=== PATIENT | male | born 1955 | race Caucasian/White ===

== ENCOUNTER → 2019-01-15 | Outpatient (CLI) | payer BC ==
[~2019-01-15] MED LIST: JANUMET 50-1,01 EACH; JANUMET XR 50-1 EAC1 PO; LIDOCAINE/PRILOCAINE 2.5-2.5% KIT ONE; LOSARTAN POTASS50 MG PO; MINERAL OIL/PETROLAT/GLYCERI 6OZ BTL ONE; MUPIROCIN22 GM TOP; SIMVASTATIN20 MG PO; ZYVOX600 MG PO
== END ==
LOC: WCC 14:12
PROVIDERS: ATTEND Internal Medicine Infectious Disease
DX: E11.8 Type 2 diabetes mellitus with unspecified complications (principal); I87.332 Chronic venous hypertension (idiopathic) with ulcer and inflammation of left lower extremity; L97.329 Non-pressure chronic ulcer of left ankle with unspecified severity; R60.9 Edema, unspecified; I87.2 Venous insufficiency (chronic) (peripheral); E78.41 Elevated Lipoprotein(a)

== ENCOUNTER 2019-01-17 18:39 | Inpatient (IN) | payer BC ==
[~2019-01-17] VITALS: Ht 177.8 cm; Wt 122.2 kg
[2019-01-17] MEDS ORDERED: DEXTROSE 50% SYRINGE 50 ML IV PRN (20:45)
[2019-01-17] MEDS ORDERED: DIPHENHYDRAMINE HCL INJ 50 MG/ML VIAL IV ONE (20:45)
[2019-01-17] MEDS ORDERED: ONDANSETRON HCL INJ 2MG/ML 2ML 2 MG/ML VIAL IV PRN (20:45)
[2019-01-17] MEDS ORDERED: ACETAMINOPHEN 325 MG TAB PO PRN (20:45)
[2019-01-17] MEDS ORDERED: MORPHINE SULFATE 2 MG/ML SYR 1ML IV PRN (20:45)
[2019-01-17] MEDS: FAMOTIDINE 20 MG/2 ML VIAL IV SCH (20:57)
[2019-01-17] MEDS: PIPER-TAZ 3.375 GM 50 ML IV SCH (20:57)
[2019-01-17] MEDS ORDERED: ZYVOX600 MG PO (21:00)
[2019-01-17] MEDS ORDERED: MUPIROCIN22 GM TOP (21:01)
[2019-01-17] MEDS ORDERED: JANUMET XR 50-1 EAC1 PO (21:03)
[2019-01-17] MEDS ORDERED: JANUMET 50-1,01 EACH (21:03)
[2019-01-17] MEDS ORDERED: SIMVASTATIN20 MG PO (21:03)
[2019-01-17] MEDS ORDERED: LOSARTAN POTASS50 MG PO (21:03)
[2019-01-17 21:15] LABS: BASOPHILS # (AUTO) 0.1 (0.0-0.1); BASOPHILS % 0.6 % (0.0-1.0); EOSINOPHILS # (AUTO) 0.5 (0.0-0.4); EOSINOPHILS % 5.3 % (0.0-6.0); HEMATOCRIT 46.6 % (38.2-49.6); HEMOGLOBIN 15.4 g/dL (14.0-18.0); LYMPHOCYTES # (AUTO) 1.2 (1.0-3.2); LYMPHOCYTES % 12.7 % (18.0-39.1); MEAN CORPUSCULAR HEMOGLOBIN 29.6 pg (28-32); MEAN CORPUSCULAR VOLUME 89.4 fL (81-99); MONOCYTES % 10.5 % (4.4-11.3); NEUTROPHILS # (AUTO) 6.7 (2.1-6.9); NEUTROPHILS % 70.5 % (38.7-80.0); PLATELET COUNT 236 x10e3/uL (140-360); RED BLOOD COUNT 5.21 x10e6/uL (4.3-5.7); RED CELL DISTRIBUTION WIDTH 12.7 % (11.7-14.4)
[2019-01-17] MEDS: VANCOMYCIN 1GM/NS 250 ML 250 ML IV SCH (21:19)
[2019-01-17] MEDS: SODIUM CHLORIDE 0.9% 1000ML 1,000 ML IV SCH (21:26)
[2019-01-17] MEDS: INSULIN LISPRO 100 UNIT/1 ML 3ML VIAL SQ SCH (21:34)
[2019-01-17 21:35] LABS: ALBUMIN 3.9 g/dL (3.5-5.0); ALBUMIN/GLOBULIN RATIO 1.3 (0.8-2.0); ANION GAP 13.1 mmol/L (8-16); CALCIUM 10.1 mg/dL (8.4-10.2); CREATININE, SERUM 1.24 mg/dL (0.72-1.25); MAGNESIUM 1.9 MG/DL (1.3-2.1); POTASSIUM 4.1 mmol/L (3.5-5.1)
--- NOTE | 2019-01-17 22:02 | Diagnostic Imaging Report ---
Examination: Single AP view of the chest. COMPARISON: Chest two views 01/23/2011 INDICATION: Lower extremity cellulitis IMPRESSION: 1. Lines and Tubes: None 2. Lungs are grossly clear. No consolidation or effusion. 3. Cardiomediastinal silhouette is normal. Pulmonary vasculature is normal. 4. No acute bony abnormalities. Signed by: Dr. Freddie Rae M.D. on 01/17/2019 9:58 PM
[2019-01-17 23:25] LABS: CLARITY,URINE CLEAR (CLEAR); COLOR,URINE YELLOW (YELLOW); LEUKOCYTE ESTERASE ,URINE 1+ (NEGATIVE); NITRITE,URINE NEGATIVE (NEGATIVE)
[2019-01-17 23:26] LABS: BACTERIA,URINE RARE /HPF; BILIRUBIN,URINE NEGATIVE (NEGATIVE); EPITHELIAL CELLS,URINE RARE /LPF; KETONES,URINE NEGATIVE (NEGATIVE); PROTEIN,URINE DIPSTICK NEGATIVE (NEGATIVE); RBC,URINE 0-5 /HPF (0-5); URINE UROBILINOGEN 0.2 mg/dL (0.2 - 1); WBC,URINE (MAN) 0-5 /HPF (0-5)
[2019-01-17] MEDS ORDERED: DIPHENHYDRAMINE HCL INJ 50 MG/ML VIAL ONE (23:40)
[2019-01-18] MEDS ORDERED: MORPHINE SULFATE INJ 4 MG/ML INJ 1ML ONE (00:18)
[2019-01-18] MEDS: DIPHENHYDRAMINE HCL INJ 50 MG/ML VIAL IV PRN ×2 (00:35→16:40)
[2019-01-18] MEDS: PIPER-TAZ 3.375 GM 50 ML IV SCH ×3 (02:36→15:30)
[2019-01-18 05:43] LABS: BASOPHILS % 0.5 % (0.0-1.0); EOSINOPHILS # (AUTO) 0.4 (0.0-0.4); EOSINOPHILS % 5.1 % (0.0-6.0); HEMATOCRIT 41.6 % (38.2-49.6); HEMOGLOBIN 13.9 g/dL (14.0-18.0); LYMPHOCYTES # (AUTO) 1.3 (1.0-3.2); LYMPHOCYTES % 14.6 % (18.0-39.1); MEAN CORPUSCULAR HEMOGLOBIN 30.1 pg (28-32); MEAN CORPUSCULAR HGB CONC 33.4 g/dL (31-35); MONOCYTES # (AUTO) 0.9 (0.2-0.8); MONOCYTES % 10.6 % (4.4-11.3); NEUTROPHILS % 68.9 % (38.7-80.0); PLATELET COUNT 203 x10e3/uL (140-360); RED BLOOD COUNT 4.62 x10e6/uL (4.3-5.7); RED CELL DISTRIBUTION WIDTH 12.7 % (11.7-14.4)
[2019-01-18 05:59] LABS: ALANINE AMINOTRANSFERASE 26 IU/L (0-55); ALBUMIN 3.4 g/dL (3.5-5.0); ALBUMIN/GLOBULIN RATIO 1.2 (0.8-2.0); ALKALINE PHOSPHATASE 46 IU/L (40-150); BLOOD UREA NITROGEN 15 mg/dL (7-26); BUN/CREATININE RATIO 14 (6-25); CALCIUM 9.1 mg/dL (8.4-10.2); CARBON DIOXIDE 26 mmol/L (22-29); CHLORIDE 103 mmol/L (98-107); CREATININE, SERUM 1.09 mg/dL (0.72-1.25); EST GLOMERULAR FILTRATION RATE > 60 ML/MIN (60-); GLUCOSE 101 mg/dL (74-118); SODIUM 138 mmol/L (136-145)
--- NOTE | 2019-01-18 07:00 | NUR ---
RECEIVED REPORT FROM ANNALEE Phillips RN FOR CONINTUATION OF CARE
[2019-01-18] MEDS: SODIUM CHLORIDE 0.9% 1000ML 1,000 ML IV SCH ×2 (07:36→22:00)
[2019-01-18] MEDS: INSULIN LISPRO 100 UNIT/1 ML 3ML VIAL SQ SCH ×4 (08:05→22:00)
--- NOTE | 2019-01-18 08:30 | NUR ---
PATIENT EATING BREAKFAST. NO COMPLAINTS AT THIS TIME. DECLINED PAIN MEDS
[2019-01-18] MEDS: FAMOTIDINE 20 MG/2 ML VIAL IV SCH ×2 (09:10→17:40)
[2019-01-18] MEDS: VANCOMYCIN 1GM/NS 250 ML 250 ML IV SCH ×2 (09:10→22:00)
--- NOTE | 2019-01-18 12:52 | NUR ---
CALLED DR. HARVEY FOR CONTINUATION OF HOME MEDS, SAID OK TO LOSARTAN, SIMVASTATIN AND JANUMET
--- NOTE | 2019-01-18 16:43 | NUR ---
PT ASKING FOR BENADRYL AND MORPHINE. CHANGED PTS LEG DRESSING
[2019-01-18] MEDS ORDERED: MORPHINE SULFATE INJ 4 MG/ML INJ 1ML IV PRN (17:00)
[2019-01-18] MEDS ORDERED: NON-FORMULARY MEDICATION (Sitagliptin Phos/Metformin Hcl (Janumet Xr 50-1,000 Mg Tablet) 1 PO SCH (17:00)
[2019-01-18] MEDS: METFORMIN HCL 500 MG TAB PO SCH (17:44)
--- NOTE | 2019-01-18 18:30 | NUR ---
Patient arrived to the floor from the ER. Patient is awake alert and oriented x3, he is ambulatory independent. He has no complaints at this time. He was oriented to the room and explained to use the call light for assistance. Patient verbalized understanding.
[2019-01-18 18:47] VITALS: BP 153/77
--- NOTE | 2019-01-18 19:15 | NUR ---
Bedside rounds completed with morning nurse. Pt alert to name. Sitting up on side of the bed. Denies pain at this time. No acute distress noted. Family at bedside. Call robbins within reach. Bed low and locked.
[2019-01-18] MEDS ORDERED: DIPHENHYDRAMINE HCL 25 MG CAP PO PRN (22:00)
[2019-01-18] MEDS: SIMVASTATIN 20 MG TAB PO SCH (22:00)
[2019-01-18] MEDS ORDERED: HYDROCORTISONE 2.5% CREAM 30GM TUBE TOP PRN (22:00)
[2019-01-18] MEDS ORDERED: SODIUM CHLORIDE 0.9% 250ML 250 ML ONE (22:13)
[2019-01-18 22:42] VITALS: BP 142/91
[2019-01-18 22:57] VITALS: BP 153/77
[2019-01-19] VITALS (9 sets, daily range): BP systolic 128–146; BP diastolic 60–91
[2019-01-19] MEDS: PIPER-TAZ 3.375 GM 50 ML IV SCH ×4 (00:49→17:11)
[2019-01-19] MEDS: SODIUM CHLORIDE 0.9% 1000ML 1,000 ML IV SCH ×2 (03:45→12:45)
[2019-01-19 06:04] LABS: BASOPHILS % 0.4 % (0.0-1.0); EOSINOPHILS # (AUTO) 0.4 (0.0-0.4); EOSINOPHILS % 5.8 % (0.0-6.0); HEMATOCRIT 42.6 % (38.2-49.6); HEMOGLOBIN 14.2 g/dL (14.0-18.0); LYMPHOCYTES # (AUTO) 1.1 (1.0-3.2); LYMPHOCYTES % 14.6 % (18.0-39.1); MEAN CORPUSCULAR HEMOGLOBIN 30.3 pg (28-32); MEAN CORPUSCULAR HGB CONC 33.3 g/dL (31-35); MONOCYTES # (AUTO) 0.7 (0.2-0.8); MONOCYTES % 9.9 % (4.4-11.3); PLATELET COUNT 195 x10e3/uL (140-360); RED BLOOD COUNT 4.68 x10e6/uL (4.3-5.7); RED CELL DISTRIBUTION WIDTH 12.7 % (11.7-14.4)
[2019-01-19 07:01] LABS: ANION GAP 12.1 mmol/L (8-16); BLOOD UREA NITROGEN 12 mg/dL (7-26); BUN/CREATININE RATIO 12 (6-25); CALCIUM 8.8 mg/dL (8.4-10.2); CARBON DIOXIDE 26 mmol/L (22-29); CHLORIDE 103 mmol/L (98-107); CREATININE, SERUM 0.99 mg/dL (0.72-1.25); EST GLOMERULAR FILTRATION RATE > 60 ML/MIN (60-); GLUCOSE 94 mg/dL (74-118); MAGNESIUM 2.2 MG/DL (1.3-2.1); POTASSIUM 4.1 mmol/L (3.5-5.1); SODIUM 137 mmol/L (136-145)
[2019-01-19] MEDS: INSULIN LISPRO 100 UNIT/1 ML 3ML VIAL SQ SCH ×4 (07:30→21:00)
[2019-01-19 07:59] LABS: B-TYPE NATRIURETIC PEPTIDE2 37.1 pg/mL (0-100)
[2019-01-19 08:19] LABS: FREE T4 (FREE THYROXINE) 1.05 ng/dL (0.9-1.8)
[2019-01-19] MEDS ORDERED: NON-FORMULARY MEDICATION (Losartan Potassium 1 TAB) PO SCH (09:00)
[2019-01-19] MEDS: FAMOTIDINE 20 MG/2 ML VIAL IV SCH ×2 (09:16→17:10)
[2019-01-19] MEDS: SITAGLIPTIN 100 MG TAB PO SCH ×2 (09:17→17:10)
[2019-01-19] MEDS: METFORMIN HCL 500 MG TAB PO SCH ×2 (09:17→17:10)
[2019-01-19] MEDS: LOSARTAN POTASSIUM 25 MG TAB PO SCH (09:19)
[2019-01-19] MEDS: VANCOMYCIN 1GM/NS 250 ML 250 ML IV SCH (09:22)
[2019-01-19] MEDS: CLOBETASOL 0.05% CREAM 45GMS 1 EA/15 GM TUBE TOP SCH (14:08)
[2019-01-19] MEDS: DIPHENHYDRAMINE HCL INJ 50 MG/ML VIAL IV PRN ×2 (14:09→21:59)
--- NOTE | 2019-01-19 14:54 | NUR ---
Wound culture obtained from left lower extremity and taken to lab
[2019-01-19] MEDS ORDERED: CLOBETASOL 0.05% CREAM 45GMS 1 EA/15 GM TUBE TOP SCH (17:00)
--- NOTE | 2019-01-19 18:29 | Consultation ---
DATE OF CONSULTATION: Wound Consultation HISTORY OF PRESENT ILLNESS: A 63-year-old obese male patient with history of diabetes, developed a small wound to the left leg after scratching the leg. The patient was getting treatment from primary care physician. Also, the patient applied several clark's [place] creams that he could find from the Pharmacy including Neosporin, chloroplast, iodine, and some other creams, he does not remember the name. The patient has developed a rash to both legs, forearm, scrotum, also in the neck. PAST MEDICAL HISTORY: Diabetes, obesity, hypertension, and degenerative joint disease. PAST SURGICAL HISTORY: C3-C4 diskectomy. PERSONAL HISTORY: Quit smoking in 1980 after 10 years of smoking. Occasional alcohol use. MEDICATIONS: Tylenol, dextrose, Pepcid, hydrocortisone 2.5%, metformin, morphine, Zofran, Zosyn, simvastatin, Januvia, and vancomycin. ALLERGIES: NONE. PHYSICAL EXAMINATION: VITAL SIGNS: Height 70 inches, weight 273.31 pounds. HEENT: Normal. NECK: No JVD. LUNGS: Bilaterally normal. ABDOMEN: Soft. Bowel sounds normal. LOWER EXTREMITIES: Trace edema present in both legs. Left medial leg, the patient has wound. Also, some blisters on medial left foot. Extensive papillomacular rash involving both legs up to thigh. Also, chronic scrotal dermatitis with excoriations at the scrotum from chronic pruritus noted. Both dorsal forearm and wrist have rash from scratching. Scalp has seborrhea. ASSESSMENT: Left leg venous stasis ulcer with secondary allergic dermatitis from external cream application and also asteatotic dermatitis. PLAN: We will give Solu-Medrol 40 mg b.i.d. and clobetasol cream to the skin. Continue antibiotic for cellulitis. Control blood sugar. Discussed with the patient to avoid all the creams that he was applying including Neosporin, chloroplast, and iodine. MD SANDIE Chow/BLAYNE /[id number]
[2019-01-19] MEDS: DAPTOMYCIN 500mg 10ML 500 MG in SODIUM CHLORIDE 0.9% 100 ML IV SCH (21:29)
[2019-01-19] MEDS: METHYLPREDNISOLONE SOD SUCC 40 MG/ML VIAL 1ML IV SCH (21:30)
[2019-01-19] MEDS: SIMVASTATIN 20 MG TAB PO SCH (21:30)
[2019-01-20] VITALS (7 sets, daily range): BP systolic 116–135; BP diastolic 65–77
[2019-01-20] MEDS: SODIUM CHLORIDE 0.9% 1000ML 1,000 ML IV SCH (04:38)
[2019-01-20 06:09] LABS: BASOPHILS % 0.3 % (0.0-1.0); EOSINOPHILS % 0.3 % (0.0-6.0); HEMATOCRIT 44.4 % (38.2-49.6); HEMOGLOBIN 14.9 g/dL (14.0-18.0); LYMPHOCYTES # (AUTO) 0.4 (1.0-3.2); LYMPHOCYTES % 6.1 % (18.0-39.1); MEAN CORPUSCULAR HEMOGLOBIN 30.2 pg (28-32); MEAN CORPUSCULAR HGB CONC 33.6 g/dL (31-35); MEAN CORPUSCULAR VOLUME 90.1 fL (81-99); MONOCYTES # (AUTO) 0.1 (0.2-0.8); MONOCYTES % 1.8 % (4.4-11.3); NEUTROPHILS # (AUTO) 6.1 (2.1-6.9); NEUTROPHILS % 91.2 % (38.7-80.0); PLATELET COUNT 222 x10e3/uL (140-360); RED BLOOD COUNT 4.93 x10e6/uL (4.3-5.7); RED CELL DISTRIBUTION WIDTH 12.5 % (11.7-14.4)
[2019-01-20 06:27] LABS: ANION GAP 13.5 mmol/L (8-16); BLOOD UREA NITROGEN 13 mg/dL (7-26); BUN/CREATININE RATIO 13 (6-25); CALCIUM 9.2 mg/dL (8.4-10.2); CARBON DIOXIDE 25 mmol/L (22-29); CHLORIDE 101 mmol/L (98-107); CREATININE, SERUM 1.04 mg/dL (0.72-1.25); EST GLOMERULAR FILTRATION RATE > 60 ML/MIN (60-); GLUCOSE 206 mg/dL (74-118); POTASSIUM 4.5 mmol/L (3.5-5.1); SODIUM 135 mmol/L (136-145)
--- NOTE | 2019-01-20 07:10 | NUR ---
PATIENT IN STABLE CONDITION WITH NO S/S OF RESPIRATORY DISTRESS. NO PAIN VOICED. IV FLUIDS INFUSING. DRESSINGS TO LEFT LOWER CALF/ANKLE IS DRY AND INTACT. PATIENT DID NOT WANT DRESSING TO BE CHANGED. URINAL PRESENT FOR PATIENT. CALL LIGHT IS WITHIN REACH, PATIENT INSTRUCTED TO CALL FOR ASSISTANCE NEEDED.
[2019-01-20] MEDS: INSULIN LISPRO 100 UNIT/1 ML 3ML VIAL SQ SCH ×4 (07:30→20:09)
[2019-01-20] MEDS: METFORMIN HCL 500 MG TAB PO SCH ×2 (08:50→16:28)
[2019-01-20] MEDS: SITAGLIPTIN 100 MG TAB PO SCH ×2 (08:50→16:28)
[2019-01-20] MEDS: LOSARTAN POTASSIUM 25 MG TAB PO SCH (08:50)
[2019-01-20] MEDS: METHYLPREDNISOLONE SOD SUCC 40 MG/ML VIAL 1ML IV SCH ×2 (08:50→20:09)
[2019-01-20] MEDS: FAMOTIDINE 20 MG/2 ML VIAL IV SCH ×2 (08:53→16:28)
[2019-01-20] MEDS: CLOBETASOL 0.05% CREAM 45GMS 1 EA/15 GM TUBE TOP SCH ×2 (09:00→18:04)
--- NOTE | 2019-01-20 12:49 | Consultation ---
DATE OF CONSULTATION: 01/19/2019 Infectious Disease Initial Consultation. CONSULTING PHYSICIAN: Dr. Mic Hamilton to Dr. Srinivas Lira. REASON FOR CONSULTATION: Cellulitis, left lower extremity infected wound, left medial ulcer, management of IV antibiotics. HISTORY OF PRESENT ILLNESS: This is a 63-year-old male, who presented through the ED with complaints of severe itching to bilateral lower extremities as well as redness and swelling to bilateral extremities, presented on 01/18/2019, to the [facility] ED. He was seen on 01/15/2019, in [facility] per Dr. Srinivas Lira for treatment of wound care. He said that the wound on his medial ankle began approximately 1 month ago. He was treated by his primary care provider 1 week ago with cephalexin as well as Bactroban ointment and this did not improve and that is the reason why he was referred to the Wound Center. When Dr. Lira saw him on Friday, he was prescribed honey to the wound daily as well as Zyvox 600 mg by mouth twice a day. He stated that the wound started to worsen beginning Friday with the redness spreading up to the leg. By Friday night or Friday, it was spreading to the right leg as well as he was complaining of itching on the dorsal part of his each hand. The patient states that it became hot to touch both legs as well as the back of the hands, and severe itching and burning. He was started on vancomycin and Zosyn. He has been given benadryl 25 mg IV q.6 hours p.r.n., at which time, he has had 2 doses at midnight on the as well as at 6 o'clock on the morning on the . He also had a dose at 2 o'clock this afternoon. In total, he has had 3 doses of 25 mg benadryl IV push. The patient states after he was seen by Dr. Trivedi with Wound Care, he was prescribed an ointment, clobetasol and after he started putting the ointment on to the skin, that was the only thing that seemed to have relieved the itching and burning. He was also given Solu-Medrol 40 mg IV q.12 hours. PAST MEDICAL HISTORY: Includes hypertension, hyperlipidemia, and diabetes mellitus type 2. PAST SURGICAL HISTORY: C3-C4 diskectomy. FAMILY HISTORY: Diabetes in the dad, stroke in the grandmother, and cancer in the grandmother, dad, brother, and uncle. SOCIAL HISTORY: Quit smoking tobacco in 1980, has smoked for 10 years. Occasional EtOH use. Denies illicit drug use. ALLERGIES: NO KNOW DRUG ALLERGIES. MEDICATIONS: Currently on Zosyn 3.375 g IV q.6 hours, metformin 1000 mg twice a day by mouth, Januvia 50 mg twice a day by mouth, Pepcid 40 mg twice a day IV, benadryl 25 mg q.6 hours p.r.n. for itching, clobetasol b.i.d. topical ointment, vancomycin 1 g IV q.12 hours, Cozaar 50 mg daily by mouth, and simvastatin 20 mg q.h.s., that is all of his scheduled medications. REVIEW OF SYSTEMS: A 14-point review of systems was conducted, other than dermatological issues of right lower extremity irritation and left lower extremity wound with erythema progressing all the way up to the groin area, also affecting the scrotum and the dorsal back of the bilateral hands. He has itching. Otherwise 14-point review of systems was negative. PHYSICAL EXAMINATION: VITAL SIGNS: Currently, temperature 98.1, pulse 69, blood pressure 146/72, and respiratory rate of 20. GENERAL: He is alert and oriented x3, in no acute distress. LUNGS: Clear to auscultation bilaterally. HEENT: Head normocephalic and atraumatic. PERRLA. Extraocular movements intact. NECK: Supple. No lymphadenopathy. CARDIOVASCULAR: Regular rate and rhythm. Normal S1 and S2. No murmurs audible. ABDOMEN: Soft and nontender. Bowel sounds present x4. EXTREMITIES: Left lower extremity is edematous, definitely larger than the right lower extremity, has more redness spreading all the way from the ankle up to the groin and also affecting the scrotum. Right lower extremity also has redness, but less so than the left. SKIN: Not warm to touch. He voices no pain in this area at this time. NEUROLOGIC: He is alert and oriented x3. No focal deficits. Cranial nerves II through XII grossly intact. LABORATORY DATA: Sodium 137, potassium 4.1, chloride 103, bicarb 26, BUN of 12, creatinine is 0.99, and glucose of 94. WBC is 7.2, hemoglobin 14.2, hematocrit 42.6, and platelets 195. Liver enzymes; AST 28, alkaline phosphatase 46, ALT 26, and total bilirubin 0.7. Vancomycin trough obtained today was 8.4. Hemoglobin A1c was 11.4. Chest x-ray obtained yesterday was negative. Arterial Dopplers of bilateral lower extremity were within normal limits. No stenosis noted. Blood cultures are no growth to date. Urine culture showing no growing to date. Wound cultures are obtained today. No venous Dopplers were obtained. ASSESSMENT: 1. Cellulitis to the left lower extremity, possible drug reaction. Left medial venous stasis ulcer approximately 1 x 1 cm x 0.2, 100% fibrotic. 2. Venous stasis dermatitis. 3. Diabetes mellitus type 2. 4. Morbid obesity. RECOMMENDATIONS: We will stop vancomycin as well as Zosyn. We will start daptomycin 4 mg/kg. The patient currently weighs 275 pounds. We will obtain baseline CK level. We will follow wound culture results. Further recommendations to follow. Case was discussed with Dr. Lira. Thank you Dr. Hamilton for the consultation. We will follow the patient along with you. Dictated By: Martínez Atkins NP Dictated by Bill Atkins NP MD GENE Negrete/BLAYNE /[id number]
--- NOTE | 2019-01-20 19:16 | NUR ---
PATIENT SITTING ON SOFA- PATIENT IN STABLE CONDITION WITH NO S/S OF RESPIRATORY DISTRESS. NO PAIN VOICED. DRESSING TO RIGHT ANKLE IS DRY AND INTACT. CALL LIGHT IS WITHIN REACH, INSTRUCTED TO CALL FOR ASSISTANCE NEEDED. BEDSIDE REPORT GIVEN TO ONCOMING NURSE.
--- NOTE | 2019-01-20 19:21 | NUR ---
Walking rounds/bedside report received. Pt resting in bed and in no apparent distress. All safety measures ensured.
[2019-01-20] MEDS: DAPTOMYCIN 500mg 10ML 500 MG in SODIUM CHLORIDE 0.9% 100 ML IV SCH (20:09)
[2019-01-20] MEDS: SIMVASTATIN 20 MG TAB PO SCH (20:09)
[2019-01-21] VITALS (7 sets, daily range): BP systolic 134–156; BP diastolic 68–89
[2019-01-21 06:08] LABS: BASOPHILS % 0.2 % (0.0-1.0); EOSINOPHILS % 0.1 % (0.0-6.0); HEMATOCRIT 40.6 % (38.2-49.6); HEMOGLOBIN 13.8 g/dL (14.0-18.0); LYMPHOCYTES # (AUTO) 0.9 (1.0-3.2); LYMPHOCYTES % 9.9 % (18.0-39.1); MEAN CORPUSCULAR HEMOGLOBIN 30.2 pg (28-32); MEAN CORPUSCULAR VOLUME 88.8 fL (81-99); MONOCYTES # (AUTO) 0.8 (0.2-0.8); MONOCYTES % 8.2 % (4.4-11.3); NEUTROPHILS # (AUTO) 7.4 (2.1-6.9); NEUTROPHILS % 81.1 % (38.7-80.0); PLATELET COUNT 227 x10e3/uL (140-360); RED BLOOD COUNT 4.57 x10e6/uL (4.3-5.7); RED CELL DISTRIBUTION WIDTH 12.5 % (11.7-14.4)
[2019-01-21 06:40] LABS: ANION GAP 11.2 mmol/L (8-16); BLOOD UREA NITROGEN 18 mg/dL (7-26); BUN/CREATININE RATIO 20 (6-25); CALCIUM 9.2 mg/dL (8.4-10.2); CARBON DIOXIDE 25 mmol/L (22-29); CHLORIDE 103 mmol/L (98-107); CREATININE, SERUM 0.91 mg/dL (0.72-1.25); EST GLOMERULAR FILTRATION RATE > 60 ML/MIN (60-); GLUCOSE 238 mg/dL (74-118); MAGNESIUM 2.1 MG/DL (1.3-2.1); POTASSIUM 4.2 mmol/L (3.5-5.1); SODIUM 135 mmol/L (136-145)
[2019-01-21] MEDS: INSULIN LISPRO 100 UNIT/1 ML 3ML VIAL SQ SCH ×4 (07:30→21:00)
[2019-01-21] MEDS: CLOBETASOL 0.05% CREAM 45GMS 1 EA/15 GM TUBE TOP SCH ×2 (08:17→17:41)
[2019-01-21] MEDS: LOSARTAN POTASSIUM 25 MG TAB PO SCH (08:25)
[2019-01-21] MEDS: METFORMIN HCL 500 MG TAB PO SCH ×2 (08:25→17:14)
[2019-01-21] MEDS: FAMOTIDINE 20 MG/2 ML VIAL IV SCH ×2 (08:25→17:14)
[2019-01-21] MEDS: SITAGLIPTIN 100 MG TAB PO SCH ×2 (08:25→17:14)
[2019-01-21] MEDS: METHYLPREDNISOLONE SOD SUCC 40 MG/ML VIAL 1ML IV SCH ×2 (08:25→21:00)
[2019-01-21] MEDS ORDERED: PREDNISONE PO (09:26)
[2019-01-21] MEDS ORDERED: Clobetasol 0.05% Cream 45GMS TOP (09:26)
--- NOTE | 2019-01-21 10:03 | NUR ---
PATIENT IS IN STABLE CONDITION WITH NO S/S OF RESPIRATORY DISTRESS. PATIENT DENIES ANY PAIN. DRESSING TO LEFT LOWER ANKLE IS DRY AND INTACT. CALL LIGHT IS WITHIN REACH, PATIENT INSTRUCTED TO CALL FOR ASSISTANCE NEEDED.
--- NOTE | 2019-01-21 11:04 | NUR ---
RECEIVED A CALL FROM CODING ANALYST STATING SHE RECEIVED A CALL FROM [employer] AND ASKED THAT WE CALL. CALL WAS MADE TO AIDAN US @ [phone] EXT. [phone]. AIDAN STATES DR. ZULUAAG CALLED TO INFORM THEM OF A POSSIBLE REFERRAL. INFORMED AIDAN CUMMINGS WILL BE PROVIDING THE PT CHOICE FIRST AND WILL CONTACT HER IF THE PT CHOOSES HER AGENCY.
--- NOTE | 2019-01-21 13:54 | NUR ---
CM SPOKE TO PATIENT AT BEDSIDE REGARDING IV INFUSION THERAPY AT HOME WITH [facility]. PATIENT AWARE OF ORDER AND SPOKE WITH MD REGARDING A SPECIFIC INFUSION COMPANY. PATIENT REQUESTS TO RECEIVE SERVICES FROM [facility]. CHOICE LETTER SIGNED AND PLACED IN CHART. CLINICAL SENT TO [facility] AND PENDING CONFIRMATION PRIOR TO DISCHARGE. [facility] (F) [phone] (P) [phone]
--- NOTE | 2019-01-21 16:27 | Diagnostic Imaging Report ---
EXAM: CHEST XRAY LINE PLACEMENT, AP Portable DATE: 01/21/2019 Time stamp on exam: 4:02 PM INDICATION: PICC placement COMPARISON: None FINDINGS: LINES/TUBES: Right-sided PICC line terminates overlying the SVC. LUNGS: No consolidations or edema. PLEURA: No effusions or pneumothorax. HEART AND MEDIASTINUM: Normal size and contour. BONES AND SOFT TISSUES: No acute findings. IMPRESSION: No acute thoracic abnormality. Signed by: Dr. Guicho Mejia DO on 01/21/2019 4:23 PM
--- NOTE | 2019-01-21 16:52 | NUR ---
RECEIVED OKAY TO USE PICC LINE FROM RADIOLOGIST, DR. GAY.
--- NOTE | 2019-01-21 18:01 | NUR ---
SPOKE WITH KIM LEI N.P. - RECEIVED ORDER TO STOP DC ORDER AND ORDER FOR CASE MANAGEMENT TO [facility] THAT WILL BE COVERED BY INSURANCE.
--- NOTE | 2019-01-21 18:28 | NUR ---
RECEIVED CALLBACK FROM Shelby Tesfaye. SPOKE WITH [employer] PERSONNEL. RECEIVED ORDER FROM N.P. TO DISCHARGE THE PATIENT AFTER [facility] PERSONNEL SPEAKS TO PATIENT ABOUT IV ANTIBIOTIC.
--- NOTE | 2019-01-21 19:23 | NUR ---
PATIENT IS IN STABLE CONDITION WITH NO S/S OF RESPIRATORY DISTRESS. NO PAIN VOICED. IV ANTIBIOTIC INFUSING. PRESENT IN ROOM. PATIENT IS CURRENTLY WAITING ON [employer] [facility]. CALL LIGHT IS WITHIN REACH, PATIENT INSTRUCTED TO CALL FOR ASSISTANCE NEEDED. BEDSIDE ROUNDING COMPLETED WITH ONCOMING NURSE.
[2019-01-21] MEDS: DAPTOMYCIN 500mg 10ML 500 MG in SODIUM CHLORIDE 0.9% 100 ML IV SCH (19:25)
[2019-01-21] MEDS: SIMVASTATIN 20 MG TAB PO SCH (21:00)
--- NOTE | 2019-01-22 01:59 | Discharge Summary ---
ADMISSION DIAGNOSES: Bilateral lower extremity cellulitis and rash, failed outpatient treatment; left lower extremity ulcer; hypertension; type 2 diabetes; obesity; and hyperlipidemia. DISCHARGE DIAGNOSES: Bilateral lower extremity cellulitis and rash, failed outpatient treatment; left lower extremity ulcer; hypertension; type 2 diabetes; obesity; and hyperlipidemia. HISTORY: The patient has a history of type 2 diabetes, hypertension, and hyperlipidemia. SURGICAL HISTORY: C3-C4 diskectomy. FAMILY HISTORY: The patient's dad had diabetes. The patient's grandma had a stroke. The patient's dad, grandma, brother, and uncle had cancer. SOCIAL HISTORY: The patient admits to occasional alcohol use and says he quit smoking in 1980. HOSPITAL COURSE: A 63-year-old male complains of 1 month ago. He goes to the [facility]ound Care [facility] and was given Medihoney ointment by Dr. Lira. He has worsened despite antibiotics and wound care. Last week, the area became more erythematous. On Friday, he noticed the rash was beginning on his right leg. He denies drainage and fever. He admits to itching and burning. On admission, patient was started on vancomycin and Zosyn. Wound culture was ordered. Bilateral lower extremity arterial and venous Doppler were ordered, the venous Doppler was just on the left lower extremity, which was negative. Dr. Lira was consulted, who changed the antibiotics to daptomycin. The patient was started on clobetasol and prednisone for an apparent drug reaction to Zyvox, which he was given outpatient. After a couple days of steroids and clobetasol, the patient is feeling much better and the rash is much improved. Per Dr. Lira, the patient will discharge home with 10 more days of IV daptomycin. He will follow up in Wound Care Clinic tomorrow morning with Dr. Lira. Vital signs stable, patient afebrile. The patient was also given a prescription for the clobetasol. He will follow up with primary care in 1-2 weeks. The patient and understand discharge instructions and agrees to plan. Dictated by Pinky France NP Mic Hamilton MD ANNMARIE/MODL /[id number]
== END 2019-01-21 23:22 | disposition home or self-care (01) | DRG 300 ==
LOC: ER 18:39 → ERHOLD 21:32 → MED/SURG3 01-18 18:35
PROVIDERS: ADMIT Internal Medicine; ATTEND Internal Medicine
PROC: 02HV33Z Insertion of Infusion Device into Superior Vena Cava, Percutaneous Approach (ICD-10-PCS; principal; 2019-01-21)
DX: I87.2 Venous insufficiency (chronic) (peripheral) (principal); L03.116 Cellulitis of left lower limb; L03.115 Cellulitis of right lower limb; L23.3 Allergic contact dermatitis due to drugs in contact with skin; Z79.4 Long term (current) use of insulin; E66.01 Morbid (severe) obesity due to excess calories; Z68.38 Body mass index [BMI] 38.0-38.9, adult; T50.905A Adverse effect of unspecified drugs, medicaments and biological substances, initial encounter; L29.9 Pruritus, unspecified; Z87.891 Personal history of nicotine dependence; E11.9 Type 2 diabetes mellitus without complications; L21.8 Other seborrheic dermatitis
CPT/HCPCS: 36415; 36569; 71045; 80048; 80053; 80202; 81001; 82550; 82948; 83036; 83605; 83735; 83880; 84439; 84443; 85025; 87040; 87071; 87086; 87205; 93925; 93971; 96374; 99284; J1200; J2270; J2405; J2543; J2920; J3370; J7030; J7050

== ENCOUNTER → 2019-01-22 | Outpatient (CLI) | payer BC ==
[~2019-01-22] MED LIST changes: +Clobetasol 0.05% Cream 45GMS TOP; -LIDOCAINE/PRILOCAINE 2.5-2.5% KIT ONE; -MINERAL OIL/PETROLAT/GLYCERI 6OZ BTL ONE; +PREDNISONE PO
== END ==
LOC: WCC 14:19
PROVIDERS: ATTEND Internal Medicine Infectious Disease
DX: E11.8 Type 2 diabetes mellitus with unspecified complications (principal); I87.332 Chronic venous hypertension (idiopathic) with ulcer and inflammation of left lower extremity; L97.329 Non-pressure chronic ulcer of left ankle with unspecified severity; L03.116 Cellulitis of left lower limb; I87.2 Venous insufficiency (chronic) (peripheral); R60.9 Edema, unspecified; E78.41 Elevated Lipoprotein(a)

== ENCOUNTER → 2019-01-29 | Outpatient (CLI) | payer BC ==
[~2019-01-29] MED LIST changes: +LIDOCAINE/PRILOCAINE 2.5-2.5% KIT ONE
== END ==
LOC: WCC 12:25
PROVIDERS: ATTEND Internal Medicine Infectious Disease
DX: E11.8 Type 2 diabetes mellitus with unspecified complications (principal); L97.329 Non-pressure chronic ulcer of left ankle with unspecified severity; I87.332 Chronic venous hypertension (idiopathic) with ulcer and inflammation of left lower extremity; L03.116 Cellulitis of left lower limb; I87.2 Venous insufficiency (chronic) (peripheral); R60.9 Edema, unspecified; E78.41 Elevated Lipoprotein(a)

== ENCOUNTER 2019-02-02 17:30 | Inpatient (IN) | payer BC ==
[~2019-02-02] VITALS: Ht 177.8 cm; Wt 125.0 kg
[~2019-02-02 17:30] MED LIST changes: -LIDOCAINE/PRILOCAINE 2.5-2.5% KIT ONE
--- OUTSIDE RECORDS SUMMARY | 2019-02-02 17:33 | XMS REPORT ---
Author Author [facility] Address Unknown Phone Unavailable Care Team Providers Care Geophysical Data Technician Name Role Phone LULA ANN Unavailable Unavailable Problems This patient has no known problems. Allergies, Adverse Reactions, Alerts This patient has no known allergies or adverse reactions. Medications This patient has no known medications. Results Test Description Test Time Test Comments Text Results Atomic Results Result Comments CHEST XRAY LINE PLACEMENT 2019-01-21 16:18:00 [place] [address] Patient Name: REID SAMAYOA MR #: [id number] : 1955 Age/Sex: 63/M Req #: [id number] [facility] Physician: LULA ANN MD Ordered by: MARK ZULUAGA MD Report #: [id number] Location: [facility] Room/Bed: [facility] Procedure: [id number] DX/CHEST XRAY LINE PLACEMENT Exam Date: 01/21/19 Exam Time: 1530 REPORT STATUS: Signed EXAM: CHEST XRAY LINE PLACEMENT, AP Portable DATE: 01/21/2019 Time stamp on exam: 4:02 PM INDICATION: PICC placement COMPARISON: None FINDINGS: LINES/TUBES: Right-sided PICC line terminates overlying the SVC. LUNGS: No consolidations or edema. PLEURA: No effusions or pneumothorax. HEART AND MEDIASTINUM: Normal size and contour. BONES AND SOFT TISSUES: No acute findings. IMPRESSION: No acute thoracic abnormality. Signed by: Dr. Gena Mejia DO on 01/21/2019 4:23 PM Dictated By: GENA MEJIA DO 22 Transcribed By: ARIANNE on 01/21/191622 COPY TO: MARK ZULUAGA MD CHEST SINGLE (PORTABLE) 2019-01-17 21:58:00 [place] [address] Patient Name: REID SAMAYOA MR #: [id number] : 1955 Age/Sex: 63/M Req #: [id number] Adm Physician: LULA ANN MD Ordered by: JIAN BADILLO MD Report #: [id number] Location: [facility] Room/Bed: [place] [address] Procedure: [id number] DX/CHEST SINGLE (PORTABLE) Exam Date: 01/17/19 Exam Time: 2041 REPORT STATUS: Signed Examination: Single AP view of the chest. [facility]: Chest two views 01/23/2011 INDICATION: Lower extremity cellulitis IMPRESSION: 1. Lines and Tubes: None 2. Lungs are grossly clear. No consolidation or effusion. 3. Cardiomediastinal silhouette is normal. Pulmonary vasculature is normal. 4. No acute bony abnormalities. Signed by: Dr. Madisyn Rae M.D. on 01/17/2019 9:58 PM Dictated By: MADISYN RAE MD 57 Transcribed By: ARIANNE on 01/17/192157 COPY TO: JIAN BADILLO MD
[2019-02-02] MEDS ORDERED: SODIUM CHLORIDE 0.9% 1000ML 1,000 ML IV STA ×2 (17:57→18:10)
[2019-02-02] MEDS ORDERED: ACETAMINOPHEN 1000 MG/100 ML IV NR (18:00)
[2019-02-02] MEDS ORDERED: VANCOMYCIN 1GM/NS 250 ML 250 ML IV ONE (18:15)
[2019-02-02] MEDS ORDERED: SODIUM CHLORIDE 0.9% 1000ML 1,000 ML ONE (18:15)
[2019-02-02 18:36] LABS: BASOPHILS % 0.3 % (0.0-1.0); EOSINOPHILS % 0.3 % (0.0-6.0); HEMATOCRIT 41.1 % (38.2-49.6); HEMOGLOBIN 14.2 g/dL (14.0-18.0); LYMPHOCYTES # (AUTO) 0.3 (1.0-3.2); LYMPHOCYTES % 3.2 % (18.0-39.1); MEAN CORPUSCULAR HEMOGLOBIN 30.1 pg (28-32); MEAN CORPUSCULAR HGB CONC 34.5 g/dL (31-35); MEAN CORPUSCULAR VOLUME 87.3 fL (81-99); MONOCYTES # (AUTO) 0.6 (0.2-0.8); MONOCYTES % 6.3 % (4.4-11.3); NEUTROPHILS # (AUTO) 8.1 (2.1-6.9); NEUTROPHILS % 89.3 % (38.7-80.0); PLATELET COUNT 182 x10e3/uL (140-360); RED BLOOD COUNT 4.71 x10e6/uL (4.3-5.7); RED CELL DISTRIBUTION WIDTH 12.4 % (11.7-14.4)
[2019-02-02 18:45] LABS: INR 0.97; PROTHROMBIN TIME 13.4 seconds (11.9-14.5)
[2019-02-02 18:46] LABS: PARTIAL THROMBOPLASTIN TIME 40.5 seconds (23.8-35.5)
[2019-02-02 18:56] LABS: ALANINE AMINOTRANSFERASE 30 IU/L (0-55); ALBUMIN 3.7 g/dL (3.5-5.0); ALBUMIN/GLOBULIN RATIO 1.3 (0.8-2.0); ALKALINE PHOSPHATASE 47 IU/L (40-150); ANION GAP 12.7 mmol/L (8-16); BLOOD UREA NITROGEN 17 mg/dL (7-26); BUN/CREATININE RATIO 18 (6-25); CALCIUM 9.1 mg/dL (8.4-10.2); CARBON DIOXIDE 23 mmol/L (22-29); CHLORIDE 98 mmol/L (98-107); CREATINE KINASE 175 IU/L (30-200); CREATININE, SERUM 0.94 mg/dL (0.72-1.25); EST GLOMERULAR FILTRATION RATE > 60 ML/MIN (60-); GLUCOSE 182 mg/dL (74-118); LIPASE 21 U/L (8-78); MAGNESIUM 1.5 MG/DL (1.3-2.1); POTASSIUM 3.7 mmol/L (3.5-5.1); SODIUM 130 mmol/L (136-145)
--- NOTE | 2019-02-02 19:00 | NUR ---
PT MOVED TO ROOM 9, PLACED ON HOSPITAL BED FOR COMFORT.
--- NOTE | 2019-02-02 19:02 | Diagnostic Imaging Report ---
Examination: Single AP view of the chest. COMPARISON: None. INDICATION: Line placement DISCUSSION: Lines/tubes: PICC line with tip over the SVC. Lungs: The lungs are well inflated and clear. No pneumonia or pulmonary edema. Pleura: No pleural effusion or pneumothorax. Heart and mediastinum: The heart and the mediastinum are unremarkable. Bones and soft tissues: No acute bony abnormalities. IMPRESSION: 1. PICC line with tip over the SVC. Signed by: Dr. Cyril Castillo M.D. on 02/02/2019 6:58 PM
[2019-02-02 19:17] LABS: B-TYPE NATRIURETIC PEPTIDE2 44.2 pg/mL (0-100)
[2019-02-02] MEDS ORDERED: VANCOMYCIN 1GM/NS 250 ML 250 ML IV SCH (19:30)
[2019-02-02] MEDS ORDERED: IBUPROFEN 600 MG TAB PO NR (19:30)
[2019-02-02] MEDS ORDERED: ONDANSETRON HCL INJ 2MG/ML 2ML 2 MG/ML VIAL IV PRN (19:30)
[2019-02-02] MEDS ORDERED: MORPHINE SULFATE INJ 4 MG/ML INJ 1ML IV PRN (20:00)
[2019-02-02] MEDS ORDERED: DEXTROSE 50% SYRINGE 50 ML IV PRN (20:00)
[2019-02-02] MEDS: SODIUM CHLORIDE 0.9% 1000ML 1,000 ML IV SCH (20:52)
[2019-02-02] MEDS: DAPTOMYCIN 500mg 10ML 500 MG in SODIUM CHLORIDE 0.9% 100 ML 100 ML IV SCH (20:54)
[2019-02-02] MEDS: INSULIN REGULAR, HUMAN 100 UNIT/1 ML 3ML VIAL SQ SCH (21:28)
[2019-02-02 21:30] LABS: CLARITY,URINE HAZY (CLEAR); COLOR,URINE YELLOW (YELLOW); LEUKOCYTE ESTERASE ,URINE NEGATIVE (NEGATIVE); NITRITE,URINE NEGATIVE (NEGATIVE); PROTEIN,URINE DIPSTICK TRACE (NEGATIVE)
[2019-02-02 21:31] LABS: BILIRUBIN,URINE NEGATIVE (NEGATIVE); KETONES,URINE TRACE (NEGATIVE); URINE UROBILINOGEN 0.2 mg/dL (0.2 - 1)
[2019-02-02 21:32] LABS: BACTERIA,URINE FEW /HPF; EPITHELIAL CELLS,URINE FEW /LPF; RBC,URINE 0-5 /HPF (0-5); WBC,URINE (MAN) 0-5 /HPF (0-5)
[2019-02-02] MEDS ORDERED: DIPHENHYDRAMINE HCL 25 MG CAP PO ONE ×2 (22:45→23:00)
[2019-02-02] MEDS ORDERED: FAMOTIDINE 20 MG TAB PO ONE (22:45)
--- NOTE | 2019-02-02 23:45 | NUR ---
REPORT GIVEN TO RIA HIGGINBOTHAM, PT RESTING IN BED WITH EYES CLOSED, BREATHING EVEN/UNLABORED, NAD NOTED.
[2019-02-03] MEDS ORDERED: ACETAMINOPHEN 325 MG TAB PO SCH
[2019-02-03] MEDS ORDERED: ACETAMINOPHEN 325 MG TAB ONE (01:34)
[2019-02-03] MEDS: ACETAMINOPHEN 325 MG TAB PO PRN ×3 (01:37→21:14)
[2019-02-03] MEDS: SODIUM CHLORIDE 0.9% 1000ML 1,000 ML IV SCH ×3 (04:24→20:00)
[2019-02-03] MEDS: INSULIN REGULAR, HUMAN 100 UNIT/1 ML 3ML VIAL SQ SCH ×4 (08:24→21:00)
[2019-02-03 08:38] LABS: BASOPHILS % 0.6 % (0.0-1.0); EOSINOPHILS % 0.3 % (0.0-6.0); HEMATOCRIT 38.1 % (38.2-49.6); HEMOGLOBIN 12.8 g/dL (14.0-18.0); LYMPHOCYTES # (AUTO) 0.5 (1.0-3.2); LYMPHOCYTES % 7.5 % (18.0-39.1); MEAN CORPUSCULAR HEMOGLOBIN 29.8 pg (28-32); MEAN CORPUSCULAR HGB CONC 33.6 g/dL (31-35); MEAN CORPUSCULAR VOLUME 88.6 fL (81-99); MONOCYTES # (AUTO) 0.6 (0.2-0.8); MONOCYTES % 7.8 % (4.4-11.3); NEUTROPHILS % 83.1 % (38.7-80.0); PLATELET COUNT 154 x10e3/uL (140-360); RED CELL DISTRIBUTION WIDTH 12.7 % (11.7-14.4)
[2019-02-03 08:55] LABS: ALANINE AMINOTRANSFERASE 30 IU/L (0-55); ALBUMIN/GLOBULIN RATIO 1.1 (0.8-2.0); ALKALINE PHOSPHATASE 42 IU/L (40-150); ANION GAP 8.8 mmol/L (8-16); BLOOD UREA NITROGEN 12 mg/dL (7-26); BUN/CREATININE RATIO 15 (6-25); CALCIUM 8.6 mg/dL (8.4-10.2); CARBON DIOXIDE 26 mmol/L (22-29); CHLORIDE 105 mmol/L (98-107); CREATININE, SERUM 0.82 mg/dL (0.72-1.25); EST GLOMERULAR FILTRATION RATE > 60 ML/MIN (60-); GLUCOSE 133 mg/dL (74-118); POTASSIUM 3.8 mmol/L (3.5-5.1); SODIUM 136 mmol/L (136-145)
--- NOTE | 2019-02-03 09:10 | NUR ---
patient sitting up in bed, resp fast and reporting that he was SOB. er md notified and rapid response called. EKG repeated, placed onto bipap. temp 98.0. hr 130 bp 144/103 sats 100% on room air resp 32.
[2019-02-03] MEDS ORDERED: LEVALBUTEROL HCL SOLN NEBU 0.63 MG/3 ML NEB ONE (09:37)
[2019-02-03] MEDS ORDERED: IPRATROPIUM BROMIDE 0.02% 2.5 ML NEB ONE (09:38)
[2019-02-03] MEDS ORDERED: LORAZEPAM INJ 2 MG/ML VIAL IV ONE (10:00)
[2019-02-03 10:01] LABS: ABG PCO2 49 mmHg (41-51); ABG PH 7.17 (7.31-7.41)
[2019-02-03 10:02] LABS: ABG HCO3 17 mmol/L (23-28); ABG PO2 304 mmHg (80-105)
--- NOTE | 2019-02-03 10:02 | NUR ---
Yaneth called to report critical blood culture results from an aerobic bottle. The culture is positive gram negative rods.
[2019-02-03] MEDS ORDERED: ASPIRIN 81 MG CHEW TAB PO ONE (10:15)
[2019-02-03 10:44] LABS: CREATINE KINASE MB 2.5 ng/mL (0-5.0)
[2019-02-03] MEDS ORDERED: SODIUM CHLORIDE 0.9% 1000ML 1,000 ML IV SCH (10:45)
[2019-02-03] MEDS ORDERED: MEROPENEM 1GRAM 1 GM in SODIUM CHLORIDE 0.9% 100 ML 100 ML IV SCH (11:15)
--- NOTE | 2019-02-03 12:06 | Diagnostic Imaging Report ---
EXAMINATION: CT of the chest with contrast, PE protocol. TECHNIQUE: Spiral CT images of the chest were performed from the lung apices through the level of the adrenal glands after the IV administration of 100 cc Isovue-370 Thin section reconstructions were obtained with special concentration on the pulmonary arteries. COMPARISON: Chest radiograph 02/02/2019 CLINICAL HISTORY:Sudden onset dyspnea DISCUSSION: Vasculature: The main pulmonary artery, right and left pulmonary arteries, and their visualized lobar and segmental branches are patent, without filling defect. The pulmonary outflow tract is of normal caliber. No right ventricular dilatation or septal bowing. No ectasia or aneurysmal dilatation of the thoracic aorta. Atherosclerotic coronary artery calcifications. Lungs: Perihilar and dependent predominant groundglass opacities and reticulation. 7-8 mm oblong nodule in the superior segment of the right lower lobe seen on series 3 image 61. 1.8 cm nodule laterally within the right lower lobe, with central early cavitation seen on series 3 image 69. Airways: Trachea, mainstem bronchi, and central lobar and segmental bronchi are patent. Pleura: <There is no evidence of pleural effusion or pneumothorax.> Heart and mediastinum: Visualized portions of the thyroid gland appear normal. Right upper extremity PICC tip terminates in the low superior vena cava. No axillary, hilar, or mediastinal lymphadenopathy . No pericardial effusion. Abdomen: Visualized portions of the liver, spleen, pancreas, adrenals, and stomach show no gross abnormalities. Bones and soft tissues: No osseous destructive lesions. Degenerative disc changes of the thoracic spine. IMPRESSION: No pulmonary embolus to the level of the segmental branch pulmonary arteries. Perihilar and dependent lower lobe predominant groundglass opacities and reticulation suggestive of interstitial edema. 1.8 cm cavitating nodule in the right lower lobe with adjacent noncavitary 7-8 mm nodule as discussed above. Findings may be infectious or neoplastic. In the absence of prior cross-sectional imaging of the chest for comparison purposes, short-term follow-up CT scan of the chest (1 month) is suggested to assess for stability or resolution. Signed by: Dr. Yahir Grace M.D. on 02/03/2019 12:03 PM
[2019-02-03] MEDS ORDERED: IOPAMIDOL 370 MG/ML 200 ML INFUS..BTL INJ ONE (12:07)
[2019-02-03] MEDS ORDERED: SODIUM CHLORIDE 0.9% 50ML 50 ML ONE (12:07)
--- NOTE | 2019-02-03 12:22 | NUR ---
WOUND CARE CONSULTATION INITIAL EVALUATION Patient admitted from Home to ER for fever, chills, malaise, muscle aches, fatigue. Recently hospitalized for LLE cellulitis with VSU. Dr. Lira on the case for Infectious Diseases Wound Care consulted for evaluation and recommendation of LLE ulcer. DX:Fever, LLE Ulcer with Cellulitis. LABS: WBC7.21 HGB12.8 HCT38.1 NEUT%83.1 ALB3.0 TYY411 PATIENT VISIT: Patient calm in bed with family member at bedside. Good historian. LLE ulceration at Medial malleolus appears to be healing. Patient using Medihoney in the past. States it sauceda when applied. Area dry, Non draining. Erythema to periwound with dark rubor coloration, irregular and rash appearance also found at right calf and right upper thigh. States he was on steroids iv and it was improving but has not gone away completely. Redness blanching. Pedal pulses and posterior tibial pulses present to BLE. Doppler Studies in Progress- Report pending. Jamison Score = 20 Visco Mattress / Alternating Pressure Air Mattress Conservative Moderate Strict PUP IMPRESSION: 1. Left Medial Malleolus - Venous Stasis Ulcer with dermatitis to periwound. RECOMMENDATION: 1. LLE Medial Malleolus- Venous Stasis Ulcer: - Lidocaine 2% jelly to wound bed with daily dressing changes please - Cleanse wound with NS and 4x4 gauze - Apply Silvasorb Gel and Cover with [employer]. Apply Staggered 4x4 gauze and wrap gently with light kerlix wrap. - Encourage OOB Activity - Encourage Turning and Repositioning Every 2 Hours Thank you for consulting with Wound Care Addendum: 02/03/19 at 1243 by Geronimo Samano RN Amended: Links added.
[2019-02-03] MEDS: MEROPENEM 1GM 100 ML IV SCH ×2 (13:08→20:00)
[2019-02-03] MEDS: DIPHENHYDRAMINE HCL 25 MG CAP PO PRN (14:01)
--- NOTE | 2019-02-03 15:10 | Consultation ---
DATE OF CONSULTATION: Infectious Disease Initial Consultation CONSULTING PHYSICIAN: Dr. Mic Hamilton to Dr. Srinivas Lira. REASON FOR CONSULTATION: Fever of unknown origin. HISTORY OF PRESENT ILLNESS: This is a 63-year-old male with past medical history of hypertension, hyperlipidemia, and diabetes mellitus type 2 and past surgical history of C3-C4 diskectomy, presented to the emergency department on 02/02/2019 with complaints of fever as high as 101 degree Fahrenheit over 24 hours prior to admission as well as headache. He was describing fever as well as chills and not feeling well in addition to muscle aches. He was recently hospitalized with cellulitis to the left lower extremity secondary to infected left ankle venous stasis ulcer. He has been treated as an outpatient with IV daptomycin 500 mg IV q.[address] Lira [facility] to monitor the daptomycin as well as wound care. Medial ankle ulcer began approximately 2 months ago. Of note, he also had an episode of respiratory distress this a.m. about 0900 hours, where his heart rate went up into the 140s, blood pressure was 143/101. He was given Ativan and put on BiPAP and blood pressure and heart rates got better. He was sent to CT scan of chest to rule out a PE. The CT scan was negative, but it was showing a 1.8 cm cavitary lesion in the right lower lobe as well as an adjacent noncavitary lesion. Blood cultures were obtained upon admission and the anaerobic bottle is growing gram negative bacilli. The patient was given not only daptomycin on admission, but additional dose of vancomycin which neither one did anything for gram-negative bacilli. Consultation was called this morning for us. Vancomycin was discontinued and meropenem 1 g IV q.8 hours was started. PAST MEDICAL HISTORY: See HPI. PAST SURGICAL HISTORY: See HPI. FAMILY HISTORY: Diabetes in the dad, stroke in the grandmother, and cancer in the grandmother, dad, brother, and uncle. SOCIAL HISTORY: He quit smoking tobacco in 1980, has smoked for 10 years. Occasional EtOH use. Denies any illicit drug use. ALLERGIES: NO KNOW DRUG ALLERGIES. MEDICATIONS: Januvia, Pepcid, Benadryl p.r.n. for itching, clobetasol for any itching and he is on an outpatient daptomycin 500 mg q.24 hours. REVIEW OF SYSTEMS: A 14-point review of systems was conducted. See HPI for positives. PHYSICAL EXAMINATION: VITAL SIGNS: Temperature 98.7 currently, heart rate 95, respiratory rate 18, and blood pressure 127/74. GENERAL: He is alert and oriented x3, in no acute distress. States he still feels muscle aches, not feeling very well. LUNGS: Diminished breath sounds in bilateral lower lobes. Clear apices. HEENT: Head, normocephalic and atraumatic. PERRLA. Extraocular movements intact. NECK: Supple. No lymphadenopathy. CARDIOVASCULAR: Regular rate and rhythm. Normal S1 and S2. No murmurs audible. ABDOMEN: Soft and nontender. Bowel sounds present x4. EXTREMITIES: Left lower extremity with venous stasis ulcer, approximately 1 x 1 cm to the ankle. No edema noted. NEUROLOGIC: He is alert and oriented x3. No focal deficits. Cranial nerves II through XII grossly intact. CURRENT LABS: Upon admission; WBCs were 9000 and this morning, they are 7.21. Hemoglobin 12.8, hematocrit 38.1, and platelet count of 154. Sodium 136, potassium 3.8, chloride 105, bicarb 26, BUN 12, creatinine 0.8, glucose 133, AST 28, ALT 30, alkaline phosphatase 42. CK level 227, BNP 44.2, lipase level 21. PT 13.4, INR less than 1. Urinalysis that was obtained was negative. Influenza was negative. Gram negative bacilli were found in anaerobic bottle. CT scan was negative for pulmonary embolism, but positive cavitary lesion 1.8 cm in right lower lobe with adjacent noncavitary lesion, suspected infectious process versus neoplastic. ASSESSMENT: 1. Acute fever. 2. Gram-negative bacteremia. 3. Mild cellulitis to the left lower leg. 4. Acute respiratory distress. 5. Diabetes mellitus, type 2. 6. Venous stasis dermatitis to left lower extremity. 7. Morbid obesity. RECOMMENDATIONS: Again, we will stop vancomycin. We will continue with daptomycin 500 mg IV q.24 hours and start meropenem 1 g IV q.8 hours. We will remove PICC line and place another PICC line prior to discharge and we will continue antibiotics as outpatient. Thank you for consultation. We will follow the patient along with you. Case was discussed with Dr. Lira. Further recommendations to follow based on the patient's clinical course. Dictated by Bill Atkins, FRENCH PASTRY COOK MD GENE Negrete/BLAYNE /[id number]
--- NOTE | 2019-02-03 18:17 | Consultation ---
DATE OF CONSULTATION: 02/03/2019 Pulmonary Consultation REASON FOR CONSULTATION: Abnormal chest CT. HISTORY OF PRESENT ILLNESS: Mr. Mahajan is a 63-year-old male with type 2 diabetes, hypertension, and dyslipidemia, who has been having issues with lower extremity cellulitis in the past, left venous stasis, ankle ulcer with infection. He was subsequently being seen by Wound Care and treated with Cubicin. He came to the emergency department secondary to fever over 101 degrees Fahrenheit, myalgias, not feeling, thought he had flu. When he was here, he had an episode of tachypnea and shortness of breath. He was treated with BiPAP and had CT angio done. The CT angio did not show any PE; however, it did show right lower lobe cavitary nodule, approximately 2 cm which is adjacent to the bronchus and another lesion irregular in addition on the right lower lobe. There is some bilateral lower lobe atelectasis as well. No effusions. No PE was seen. He was also found to have markedly elevated lactic acid level of 53. He was given fluid resuscitation. Blood gas was drawn that had pH of 7.17, a pCO2 of 49, and a pO2 of 304 on 50%. The patient states that he has been feeling thirsty and fatigued. He did have the episode of shortness of breath, which is now resolved and he feels much better. He has received a couple of liters of crystalloid. He denies cough, sputum, or hemoptysis. He does admit to having a few ago eating and choking and possibly aspirating. PAST MEDICAL HISTORY: As described above. PAST SURGICAL HISTORY: Includes disk surgery. SOCIAL HISTORY: He smoked up to 2 and 3 packs a day, but only for about 12 years from 1969 to 1981. He drinks one to two beers daily. He is . No drugs . FAMILY HISTORY: Positive for prostate cancer. REVIEW OF SYSTEMS: As described above. PHYSICAL EXAMINATION: VITAL SIGNS: His maximum temperature in the last 24 hours was 101.5. Most recently is 98.7, heart rates in the 90s, it was as high as 120, blood pressure 127/74, and saturation is 96%. GENERAL APPEARANCE: This is a morbidly obese appearing white male, who is awake, alert, and pleasant. HEENT: His head is normocephalic, atraumatic. His pupils are round and reactive. His mucous membranes are little on the dry side. NECK: Short, thick, and supple. CHEST: Clear. HEART: Regular rate and rhythm. ABDOMEN: Soft and nontender. EXTREMITIES: On the left have some erythema and dressing in place. Not much edema. IMAGING: As described above. LABORATORY DATA: Positive for gram negative rods in the blood culture. Lactic acid level is described above. White count is 7, hemoglobin and hematocrit 12 and 38 with 154,000 platelets. Creatinine was 0.82 this morning. Urinalysis unremarkable. ASSESSMENT: 1. Right lower lobe lung nodule. I suspect this is inflammatory, although malignancy cannot be excluded especially given his history of smoking. 2. Sepsis, severe with lactic acidosis. 3. Lactic acidosis. 4. Gram-negative bacteremia. 5. Ankle ulcer/cellulitis. 6. Diabetes mellitus. RECOMMENDATIONS AND PLAN: At this point agree with broad-spectrum antibiotics including meropenem. He had a PICC line, which has subsequently been removed, I agree with this and he is continuing to get fluid resuscitation in the emergency department per treatment and care of sepsis. With regard to the nodule, at this point, we will watch the rest of his condition and course. Should the indication arise for short term followup, it will be done by CT. Otherwise, we will plan to repeat a CT in 4 to 6 weeks approximately. MD KEVIN Duran/BLAYNE /[id number]
[2019-02-03 19:17] LABS: CREATINE KINASE MB 4.9 ng/mL (0-5.0)
--- NOTE | 2019-02-03 19:41 | Consultation ---
DATE OF CONSULTATION: Pulmonary Critical Care Consultation HISTORY OF PRESENT ILLNESS: The patient is a 63-year-old man with history of chronic wound in the left lower extremity. He was hospitalized at [facility] with subsequent cellulitis about two weeks ago. He now returns with fevers and worsening erythema of his leg. While in the emergency department, he suddenly became short of breath and had some congestion and cough. He was sent for a CT scan that showed a small cavitary lesion measuring 1.8 cm in the right lung. PAST SURGICAL HISTORY: C3-C4 diskectomy. PAST MEDICAL HISTORY: 1. Hypertension. 2. Diabetes mellitus. SOCIAL HISTORY: The patient quit smoking about 35 years ago. He was in [place] for a year in 1990 and 1991, but has not been out of the country since then. FAMILY HISTORY: Family history is significant for strokes and cancer. ALLERGIES: NO KNOWN DRUG ALLERGIES. REVIEW OF SYSTEMS: The patient did have some fevers. He has no headache. He has no neck pain. He is not having any sore throat. He has no chest pain. He has no abdominal pain. No nausea or vomiting. He does not have any dyspnea. He has minimal cough. He does note some leg swelling and erythema. PHYSICAL EXAMINATION: VITAL SIGNS: The patient is afebrile. Blood pressure is 104/72 and the pulse is 72. Respiratory rate is 18 and the saturation is 98%. HEENT: Shows no facial swelling or erythema. The nasal mucosa is normal. The oropharynx is normal. LYMPHATIC: Shows no submandibular, cervical, or supraclavicular adenopathy. NECK: Shows no JVD or thyromegaly. There is no nuchal rigidity. CARDIAC: Reveals regular rate and rhythm with normal S1 and S2. There are no murmurs or rubs heard. LUNGS: Auscultation of lungs reveals clear breath sounds bilaterally. There is no wheezing. ABDOMEN: Soft and nontender. There is no rebound or guarding. EXTREMITIES: Show bilateral leg edema with some erythema on the left lower extremity. There is also a wound. RADIOGRAPHIC DATA: CT scan of the chest shows a 1.8 cm cavitating nodule in the right lower lobe with a 7-8 mm nodule adjacent to it. LABORATORY DATA: White blood cell count is 7.2 and hemoglobin is 12.8. The platelet count is 154. The BUN to creatinine ratio is normal. The other electrolytes are within normal limits. The lactic acid is 53. IMPRESSION: 1. Cavitary nodule in the right lower lobe. 2. Cellulitis and bacteremia. PLAN: 1. The patient will be continued on current antibiotics. 2. Wound care. 3. Discussed need for a CT-guided needle biopsy with Radiology. MD SILVESTRE Bocanegra/BLAYNE /[id number]
[2019-02-03 20:00] VITALS: BP 131/60
--- NOTE | 2019-02-03 20:00 | NUR ---
Patient received lying in bed. Patient is AAO x 4. Admission history obtained and Initial physical assessment conducted. Patient had no complaints of pain. No signs of respiratory distress. Left lower leg erythematous. Patient oriented to room, call light and plan of care. Fall precautions implemented. Patient instructed to call for assistance when needed. Call light within reach.
[2019-02-03 20:03] VITALS: BP 131/60
[2019-02-03] MEDS: SIMVASTATIN 20 MG TAB PO SCH (20:34)
[2019-02-03 21:00] VITALS: BP 131/60
[2019-02-03] MEDS: DAPTOMYCIN 500mg 10ML 500 MG in SODIUM CHLORIDE 0.9% 100 ML 100 ML IV SCH (21:00)
[2019-02-03 23:50] VITALS: BP 139/76
--- NOTE | 2019-02-04 00:10 | NUR ---
Blood specimen sent to lab for analysis of cardiac markers.
--- NOTE | 2019-02-04 00:22 | NUR ---
Patient declined wound dressing change to LLE until when he gets up in the morning.
[2019-02-04] MEDS: MEROPENEM 1GM 100 ML IV SCH ×3 (02:08→21:30)
[2019-02-04 02:59] LABS: CREATINE KINASE MB 3.9 ng/mL (0-5.0)
[2019-02-04 03:31] VITALS: BP 112/59
[2019-02-04 05:41] LABS: BASOPHILS % 0.2 % (0.0-1.0); EOSINOPHILS # (AUTO) 0.1 (0.0-0.4); EOSINOPHILS % 1.2 % (0.0-6.0); HEMATOCRIT 34.9 % (38.2-49.6); HEMOGLOBIN 11.7 g/dL (14.0-18.0); LYMPHOCYTES # (AUTO) 0.7 (1.0-3.2); LYMPHOCYTES % 7.4 % (18.0-39.1); MEAN CORPUSCULAR HEMOGLOBIN 30.1 pg (28-32); MEAN CORPUSCULAR HGB CONC 33.5 g/dL (31-35); MEAN CORPUSCULAR VOLUME 89.7 fL (81-99); MONOCYTES # (AUTO) 0.9 (0.2-0.8); MONOCYTES % 10.4 % (4.4-11.3); NEUTROPHILS # (AUTO) 7.2 (2.1-6.9); NEUTROPHILS % 80.5 % (38.7-80.0); PLATELET COUNT 133 x10e3/uL (140-360); RED BLOOD COUNT 3.89 x10e6/uL (4.3-5.7); RED CELL DISTRIBUTION WIDTH 13.1 % (11.7-14.4)
[2019-02-04] MEDS: SODIUM CHLORIDE 0.9% 1000ML 1,000 ML IV SCH (05:45)
[2019-02-04 05:48] LABS: ANION GAP 8.2 mmol/L (8-16); BLOOD UREA NITROGEN 10 mg/dL (7-26); BUN/CREATININE RATIO 12 (6-25); CALCIUM 8.2 mg/dL (8.4-10.2); CARBON DIOXIDE 25 mmol/L (22-29); CHLORIDE 103 mmol/L (98-107); CREATININE, SERUM 0.82 mg/dL (0.72-1.25); EST GLOMERULAR FILTRATION RATE > 60 ML/MIN (60-); GLUCOSE 121 mg/dL (74-118); MAGNESIUM 1.7 MG/DL (1.3-2.1); POTASSIUM 4.2 mmol/L (3.5-5.1); SODIUM 132 mmol/L (136-145)
[2019-02-04 06:08] LABS: FREE T4 (FREE THYROXINE) 0.8 ng/dL (0.9-1.8); THYROID STIMULATING HORMONE 0.942 uIU/mL (0.350-4.940)
--- NOTE | 2019-02-04 07:00 | NUR ---
RCD PT AT BED PT IS ALERT AND ORIENTED PT RESTING ON BED NO SIGNS OF ANY DISTRESS NOTED FAMILY AT BED SIDE BED LOW AND LOCKED CALL LIGHT IN REACH
[2019-02-04] MEDS: INSULIN REGULAR, HUMAN 100 UNIT/1 ML 3ML VIAL SQ SCH ×4 (07:30→21:30)
[2019-02-04 08:00] VITALS: BP 145/94
[2019-02-04] MEDS: ACETAMINOPHEN 325 MG TAB PO PRN (08:00)
[2019-02-04] MEDS: LOSARTAN POTASSIUM 25 MG TAB PO SCH (09:00)
[2019-02-04] MEDS ORDERED: NON-FORMULARY MEDICATION (Losartan Potassium 1 TAB) PO SCH (09:00)
[2019-02-04] MEDS ORDERED: LIDOCAINE HCL 2% JELLY 5 ML TUBE TOP ONE (09:00)
[2019-02-04] MEDS ORDERED: HYDRALAZINE HCL 20 MG/ML VIAL IV PRN (09:15)
[2019-02-04] MEDS: LORATADINE 10 MG TAB PO SCH (09:30)
[2019-02-04] MEDS: GUAIFENESIN 600MG/DEXTROMETHORPHAN 30MG TABSR PO SCH ×2 (09:30→17:00)
[2019-02-04] MEDS ORDERED: GUAIFENESIN 600 MG TAB ONE (09:58)
[2019-02-04] MEDS ORDERED: LORATADINE 10 MG TAB ONE (09:58)
[2019-02-04 12:54] VITALS: BP 120/75
[2019-02-04] MEDS ORDERED: ONDANSETRON HCL 4 MG ORAL DISINTEGRATING TAB PO PRN (14:15)
[2019-02-04] MEDS: FAMOTIDINE 20 MG TAB PO SCH (16:30)
[2019-02-04 16:57] VITALS: BP 124/78
[2019-02-04] MEDS: OYST-CAL-D 500MG TABLET PO SCH (17:00)
--- NOTE | 2019-02-04 19:00 | NUR ---
PT RESTING ON BED BED SIDE REPORT GIVEN TO ONCOMING NURSE
--- NOTE | 2019-02-04 19:31 | Diagnostic Imaging Report ---
EXAMINATION: CHEST 2 VIEWS INDICATION: Shortness of breath. Chest pain. Fever ^Pleuritic Pain ^[id number] ^1900 COMPARISON: 02/03/2019 FINDINGS: TUBES and LINES: None. LUNGS: Perihilar peribronchial hazy opacity could be due to bronchitis. PLEURA: No pleural effusion or pneumothorax. HEART AND MEDIASTINUM: The cardiomediastinal silhouette is unremarkable. BONES AND SOFT TISSUES: No acute osseous lesion. Soft tissues are unremarkable. UPPER ABDOMEN: No free air under the diaphragm. IMPRESSION: Perihilar peribronchial hazy opacity could be due to bronchitis. 1.8 cm cavitating nodule in the right lower lobe with adjacent noncavitary 7-8 mm nodule better seen on recent CT scan. Findings may be infectious or neoplastic. Signed by: Dr. Wild Solorzano M.D. on 02/04/2019 7:27 PM
--- NOTE | 2019-02-04 20:32 | NUR ---
patient complaining of pain on inspiration, resulting in short breaths. spoke to dr. villa, received and implemented orders.
[2019-02-04] MEDS ORDERED: METHYLPREDNISOLONE SOD SUCC 125 MG/2ML VIAL IV ONE (20:45)
[2019-02-04] MEDS: SIMVASTATIN 20 MG TAB PO SCH (20:52)
[2019-02-04] MEDS: DAPTOMYCIN 500mg 10ML 500 MG in SODIUM CHLORIDE 0.9% 100 ML 100 ML IV SCH (20:52)
[2019-02-04 21:00] VITALS: BP 124/78
[2019-02-04 21:01] VITALS: BP 136/79
[2019-02-05 00:19] VITALS: BP 134/83
[2019-02-05] MEDS: MEROPENEM 1GM 100 ML IV SCH (02:14)
[2019-02-05 05:05] VITALS: BP 155/89
[2019-02-05 05:24] LABS: BASOPHILS % 0.1 % (0.0-1.0); EOSINOPHILS % 0.1 % (0.0-6.0); HEMATOCRIT 35.4 % (38.2-49.6); HEMOGLOBIN 12.3 g/dL (14.0-18.0); LYMPHOCYTES # (AUTO) 0.4 (1.0-3.2); LYMPHOCYTES % 5.6 % (18.0-39.1); MEAN CORPUSCULAR HEMOGLOBIN 30.6 pg (28-32); MEAN CORPUSCULAR HGB CONC 34.7 g/dL (31-35); MEAN CORPUSCULAR VOLUME 88.1 fL (81-99); MONOCYTES # (AUTO) 0.4 (0.2-0.8); MONOCYTES % 5.2 % (4.4-11.3); NEUTROPHILS # (AUTO) 6.9 (2.1-6.9); NEUTROPHILS % 88.7 % (38.7-80.0); PLATELET COUNT 154 x10e3/uL (140-360); RED BLOOD COUNT 4.02 x10e6/uL (4.3-5.7); RED CELL DISTRIBUTION WIDTH 12.9 % (11.7-14.4)
[2019-02-05 06:25] LABS: ANION GAP 13.2 mmol/L (8-16); BLOOD UREA NITROGEN 10 mg/dL (7-26); BUN/CREATININE RATIO 14 (6-25); CALCIUM 8.6 mg/dL (8.4-10.2); CARBON DIOXIDE 22 mmol/L (22-29); CHLORIDE 104 mmol/L (98-107); CREATININE, SERUM 0.69 mg/dL (0.72-1.25); EST GLOMERULAR FILTRATION RATE > 60 ML/MIN (60-); GLUCOSE 207 mg/dL (74-118); POTASSIUM 4.2 mmol/L (3.5-5.1); SODIUM 135 mmol/L (136-145)
[2019-02-05] MEDS: INSULIN REGULAR, HUMAN 100 UNIT/1 ML 3ML VIAL SQ SCH ×4 (08:00→20:54)
[2019-02-05 08:01] VITALS: BP 130/88
[2019-02-05] MEDS: FAMOTIDINE 20 MG TAB PO SCH ×2 (08:20→17:22)
[2019-02-05] MEDS: LOSARTAN POTASSIUM 25 MG TAB PO SCH (08:20)
[2019-02-05] MEDS: GUAIFENESIN 600MG/DEXTROMETHORPHAN 30MG TABSR PO SCH ×2 (08:20→17:22)
[2019-02-05] MEDS: LORATADINE 10 MG TAB PO SCH (08:20)
[2019-02-05] MEDS: OYST-CAL-D 500MG TABLET PO SCH ×2 (08:20→17:22)
[2019-02-05] MEDS: LIDOCAINE HCL 2% JELLY 5 ML TUBE TOP SCH (08:30)
[2019-02-05] MEDS ORDERED: LIDOCAINE HCL 2% JELLY 5 ML TUBE TOP ONE (09:00)
--- NOTE | 2019-02-05 10:55 | NUR ---
ASSESSMENT: No concerns No spiritual/emotional concerns expressed during visit. Improvement Nurse reminded pt & of availability of ice bag assembler, if needed. BILLY ASTORGA Improvement Nurse Spiritual Care Department O: [phone] Pager: [phone] ([phone] calling from)
[2019-02-05 11:17] VITALS: BP 138/89
[2019-02-05] MEDS: CEFTRIAXONE SOD 2 GM/NS 100 ML 100 ML IV SCH (13:25)
[2019-02-05 16:15] VITALS: BP 126/85
--- NOTE | 2019-02-05 17:18 | Progress Note ---
DATE: Pulmonary Critical Care Progress Note SUBJECTIVE: The patient had some chest pain last night and had a repeat chest x-ray that was unchanged. The patient now feels better. PHYSICAL EXAMINATION: VITAL SIGNS: The patient is afebrile. The vital signs are stable. HEENT: Shows no facial swelling or erythema. CARDIAC: Reveals regular rate and rhythm with normal S1, S2. LUNGS: Auscultation of lungs reveals clear breath sounds bilaterally. There is no wheezing. ABDOMEN: Soft, nontender. There is no rebound or guarding. EXTREMITIES: Show no leg edema or calf tenderness. There is no cyanosis or clubbing. SKIN: Shows some redness and erythema in the lower left extremity. IMPRESSION: 1. Right lower lobe nodule. 2. Cellulitis and leg wound. 3. Type 2 diabetes. 4. Hypertension. PLAN: 1. The patient will need a repeat CT scan of the chest as an outpatient in four weeks. If the lesion resolves with antibiotics and no further therapy will be necessary. If the pulmonary nodules still present, then a CT-guided lung biopsy will be required. 2. Continue current antibiotics. 3. Continue to monitor blood counts. Castro Rivera MD LM/BLAYNE /[id number]
[2019-02-05 20:00] VITALS: BP 127/73
[2019-02-05] MEDS: SIMVASTATIN 20 MG TAB PO SCH (20:33)
[2019-02-05] MEDS: DIPHENHYDRAMINE HCL 25 MG CAP PO PRN (23:55)
[2019-02-06] VITALS (9 sets, daily range): BP systolic 117–138; BP diastolic 74–90
[2019-02-06] MEDS: ACETAMINOPHEN 325 MG TAB PO PRN (02:36)
--- NOTE | 2019-02-06 02:37 | NUR ---
Patient c/o right upper chest pain and is having a hard time breathing and sleeping, patient also stated he felt like this yesterday only it feels worse today, he feels it might be pleurisy since he has had this before and the symptoms are similar. Vital signs were taken and WNL, o2 @ 97% on RA, respirations are clear and even, lungs clear to auscultation. Patient requested for some tylenol to help with his discomfort. Will continue to monitor the patient.
[2019-02-06 05:22] LABS: BASOPHILS % 0.4 % (0.0-1.0); EOSINOPHILS # (AUTO) 0.3 (0.0-0.4); EOSINOPHILS % 2.6 % (0.0-6.0); HEMATOCRIT 36.6 % (38.2-49.6); HEMOGLOBIN 12.4 g/dL (14.0-18.0); LYMPHOCYTES # (AUTO) 1.4 (1.0-3.2); LYMPHOCYTES % 14.5 % (18.0-39.1); MEAN CORPUSCULAR HGB CONC 33.9 g/dL (31-35); MEAN CORPUSCULAR VOLUME 88.6 fL (81-99); MONOCYTES # (AUTO) 1.1 (0.2-0.8); MONOCYTES % 10.6 % (4.4-11.3); NEUTROPHILS # (AUTO) 7.1 (2.1-6.9); NEUTROPHILS % 71.4 % (38.7-80.0); PLATELET COUNT 213 x10e3/uL (140-360); RED BLOOD COUNT 4.13 x10e6/uL (4.3-5.7); RED CELL DISTRIBUTION WIDTH 12.8 % (11.7-14.4)
[2019-02-06 05:47] LABS: ANION GAP 10.9 mmol/L (8-16); BLOOD UREA NITROGEN 15 mg/dL (7-26); BUN/CREATININE RATIO 19 (6-25); CALCIUM 9.4 mg/dL (8.4-10.2); CARBON DIOXIDE 26 mmol/L (22-29); CHLORIDE 102 mmol/L (98-107); CREATININE, SERUM 0.81 mg/dL (0.72-1.25); EST GLOMERULAR FILTRATION RATE > 60 ML/MIN (60-); GLUCOSE 131 mg/dL (74-118); POTASSIUM 3.9 mmol/L (3.5-5.1); SODIUM 135 mmol/L (136-145)
[2019-02-06] MEDS: INSULIN REGULAR, HUMAN 100 UNIT/1 ML 3ML VIAL SQ SCH ×4 (07:30→20:54)
[2019-02-06] MEDS ORDERED: ACETAMINOPHEN/CODEINE 300MG - 30MG TAB PO ONE (08:30)
[2019-02-06] MEDS: LORATADINE 10 MG TAB PO SCH (08:40)
[2019-02-06] MEDS: GUAIFENESIN 600MG/DEXTROMETHORPHAN 30MG TABSR PO SCH ×2 (08:40→18:00)
[2019-02-06] MEDS: OYST-CAL-D 500MG TABLET PO SCH ×2 (08:40→18:00)
[2019-02-06] MEDS: FAMOTIDINE 20 MG TAB PO SCH ×2 (08:40→18:00)
[2019-02-06] MEDS: LOSARTAN POTASSIUM 25 MG TAB PO SCH (08:40)
[2019-02-06] MEDS: LIDOCAINE HCL 2% JELLY 5 ML TUBE TOP SCH (09:00)
[2019-02-06] MEDS: CEFTRIAXONE SOD 2 GM/NS 100 ML 100 ML IV SCH (13:07)
--- NOTE | 2019-02-06 13:14 | NUR ---
Patient c/o of pain on inspiration that was not fully relieved earlier by the Tylenol #3. He stated that it "barely took the edge off" and pain continues to be there. He is not in any respiratory distress, respirations are even and unlabored 02 sat is WNL. Notified JAMIL Rodas covering for Dr. Hamilton. New orders received.
[2019-02-06] MEDS ORDERED: HYDROCODONE/APAP 5MG-325MG TAB PO ONE (14:00)
--- NOTE | 2019-02-06 15:25 | NUR ---
Patient c/o "pleuritic" pain not being relived by [place]. Notified Dr. Rivera. No orders received at this time, Dr. Rivera said "I will be by shortly to see him".
[2019-02-06] MEDS ORDERED: KETOROLAC TROMETHAMINE 30 MG/ML VIAL IV ONE (17:00)
--- NOTE | 2019-02-06 17:17 | Diagnostic Imaging Report ---
EXAMINATION: CHEST 2 VIEWS INDICATION: Pleuritic pain. COMPARISON: CT chest 02/03/2019 and chest radiograph 02/04/2019. FINDINGS: TUBES and LINES: None. LUNGS: Lungs are well inflated. Again noted is a rounded opacity in the right lower lung. No evidence of new consolidation. No evidence of pulmonary edema. PLEURA: No pleural effusion or pneumothorax. HEART AND MEDIASTINUM: The cardiomediastinal silhouette is unremarkable. BONES AND SOFT TISSUES: No acute osseous abnormality. UPPER ABDOMEN: No free air under the diaphragm. IMPRESSION: Rounded opacity in the right lower lung, corresponding to cavitating nodule seen on prior CT. Findings may be infectious or neoplastic. Please refer to CT chest report from 02/03/2019 for further details. No new consolidation. Signed by: Dr. Nikolay Palmer MD on 02/06/2019 5:13 PM
--- NOTE | 2019-02-06 18:04 | Progress Note ---
DATE: Pulmonary Critical Care Progress Note SUBJECTIVE: The patient states that his pleuritic chest pain improved yesterday, but then returned today. He now reports pain with inspiration again. He did not have relief with [place]. OBJECTIVE: VITAL SIGNS: Blood pressure is 138/81, saturation is 95%. The pulse is 64 and the respiratory rate is 18. HEENT: Shows no facial swelling or erythema. CARDIAC: Reveals a regular rate and rhythm with normal S1 and S2. LUNGS: Auscultation of lungs reveals clear breath sounds bilaterally. There is no wheezing. ABDOMEN: Soft, nontender. There is no rebound or guarding. EXTREMITIES: Show no leg edema or calf tenderness. LABORATORY DATA: White blood cell count is 9.9 and hemoglobin is 12.4. Platelet count is 213. BUN to creatinine ratio is 15 to 0.81 and the other electrolytes are within normal limits. Blood sugars are within normal limits. IMPRESSION: 1. Pleuritic chest pain. 2. Pulmonary nodule in the superior segment of the right lower lobe. 3. Cellulitis and leg wound. 4. Type 2 diabetes. 5. Hypertension. PLAN: 1. The patient will receive Toradol now for relief. 2. EKG and echocardiogram to rule out pericarditis. 3. Repeat PA and lateral chest x-ray. 4. Consider CT-guided biopsy of the nodule in the superior segment of the right lower lobe. Castro Rivera MD LMH/ADL /[id number]
[2019-02-06] MEDS: SIMVASTATIN 20 MG TAB PO SCH (20:54)
[2019-02-07] VITALS (9 sets, daily range): BP systolic 105–151; BP diastolic 64–90
[2019-02-07] MEDS: INSULIN REGULAR, HUMAN 100 UNIT/1 ML 3ML VIAL SQ SCH ×4 (07:30→21:14)
--- NOTE | 2019-02-07 07:50 | NUR ---
c/o "right lung pain" . Pinky France aware. See orders
[2019-02-07] MEDS: LORATADINE 10 MG TAB PO SCH (08:12)
[2019-02-07] MEDS: OYST-CAL-D 500MG TABLET PO SCH ×2 (08:12→16:45)
[2019-02-07] MEDS: LOSARTAN POTASSIUM 25 MG TAB PO SCH (08:12)
[2019-02-07] MEDS: KETOROLAC TROMETHAMINE 30 MG/ML VIAL IV PRN ×2 (08:12→16:46)
[2019-02-07] MEDS: FAMOTIDINE 20 MG TAB PO SCH ×2 (08:12→16:45)
[2019-02-07] MEDS: GUAIFENESIN 600MG/DEXTROMETHORPHAN 30MG TABSR PO SCH ×2 (08:12→16:45)
[2019-02-07] MEDS: LIDOCAINE HCL 2% JELLY 5 ML TUBE TOP SCH (09:00)
--- NOTE | 2019-02-07 09:00 | NUR ---
Patient refused wound care treatment by nurse. States " I do it myself" Wound care instructions give to patient. Voiced understanding
[2019-02-07] MEDS: CEFTRIAXONE SOD 2 GM/NS 100 ML 100 ML IV SCH (11:57)
[2019-02-07] MEDS: DIPHENHYDRAMINE HCL 25 MG CAP PO PRN (14:51)
--- NOTE | 2019-02-07 19:01 | NUR ---
Report given to oncoming nurse. Resting in bed. No s/s of acute distress noted.
[2019-02-07] MEDS: SIMVASTATIN 20 MG TAB PO SCH (21:06)
[2019-02-08] VITALS: BP 119/51
[2019-02-08 04:00] VITALS: BP 164/89
[2019-02-08] MEDS: FAMOTIDINE 20 MG TAB PO SCH ×2 (07:30→16:03)
[2019-02-08] MEDS: INSULIN REGULAR, HUMAN 100 UNIT/1 ML 3ML VIAL SQ SCH ×2 (07:30→11:30)
[2019-02-08] MEDS: KETOROLAC TROMETHAMINE 30 MG/ML VIAL IV PRN (08:19)
[2019-02-08 08:52] VITALS: BP 127/85
[2019-02-08] MEDS: LOSARTAN POTASSIUM 25 MG TAB PO SCH (09:00)
[2019-02-08] MEDS: OYST-CAL-D 500MG TABLET PO SCH ×2 (09:00→16:03)
[2019-02-08] MEDS: GUAIFENESIN 600MG/DEXTROMETHORPHAN 30MG TABSR PO SCH ×2 (09:00→16:03)
[2019-02-08] MEDS: LORATADINE 10 MG TAB PO SCH (09:00)
[2019-02-08] MEDS: LIDOCAINE HCL 2% JELLY 5 ML TUBE TOP SCH (09:00)
--- NOTE | 2019-02-08 10:00 | NUR ---
PT REQUESTED HE IS VERY HURRY TO GO HOME SO PAGED DR ANN AND LEFT THE MESSAGE
[2019-02-08] MEDS: CEFTRIAXONE SOD 2 GM/NS 100 ML 100 ML IV SCH (11:45)
[2019-02-08 12:32] VITALS: BP 163/85
[2019-02-08] MEDS ORDERED: Calcium Carbonate PO (14:31)
[2019-02-08] MEDS ORDERED: LIDOCAINE HCL 2% TOP (14:31)
[2019-02-08] MEDS ORDERED: LORATADINE10 MG PO (14:31)
[2019-02-08] MEDS ORDERED: MOBIC15 MG PO (14:31)
[2019-02-08] MEDS ORDERED: LEVAQUIN500 MG PO (14:32)
--- NOTE | 2019-02-08 15:30 | NUR ---
DISCHARGE PAPERS SIGNED BY THE PT HE IS WAITING TO SEE THE DR CASH HE SAID HE IS COMING TO SEE THE PT
--- NOTE | 2019-02-08 15:47 | NUR ---
Nutrition Screen Note RD Recommendation for Physician: -Continue current diet. Plan of Care: RD following, monitoring for tolerance and adequacy Nutrition reason for involvement: LOS Primary Diagnose(s): Fever, left leg cellulitis, sepsis PMH: Hypertension, hyperlipidemia, and diabetes mellitus type 2 and past surgical history of C3-C4 discectomy, morbid obesity Ht: 70 in Wt: 275 lb BMI: 39.5 kg/m2 IBW: [address] Assessment: (02/08) 63 YOM admitted for fever, left leg cellulitis, and sepsis. Pt was showering at time of visit, but RD was able to speak with . claims pts appetite has improved and he is eating 100% of meals. Pts also denied any N/V/C/D or any chewing/swallowing issues for the pt. She also stated the pt does not need any education regarding DM diet and they know what foods to limit in his diet. Discussed in rounds-pt would like to go home today. Chart reviewed. POC Gluc- 128-162. Labs and meds reviewed. Will continue to monitor. Current Diet: 1800 ADA diet Malnutrition Evaluation (02/08) The patient does not meet criteria for a specified degree of malnutrition at this time. Will re-evaluate at follow-up as appropriate. Diet Education Needs Assessment: Diet education indicated, denied education for pt. Nutrition Care Level: low Signed: Zahira Santiago RD, LD
--- NOTE | 2019-02-08 16:18 | NUR ---
PT WENT HOME IN SAFE CONDITION WITH HIS
[2019-02-08 16:50] VITALS: BP 164/89
--- NOTE | 2019-02-09 07:46 | Discharge Summary ---
PERTINENT HISTORY AND PHYSICAL FINDINGS: Mr. Mahajan is a 63-year-old male, who is being treated at home for cellulitis with IV Cubicin via a PICC line by Dr. Lira with Infectious Disease on February 02. He started having headache and a fever of 101.5 and having malaise. He denied any shortness of breath, weakness, or pain at that time. In the Emergency Room, he was still having shortness of breath, placed on BiPAP. PAST MEDICAL HISTORY: Significant for type 2 diabetes mellitus, hypertension, and hyperlipidemia. ADMITTING DIAGNOSES: Included: 1. Sepsis with left lower extremity cellulitis as the source. 2. Respiratory distress. 3. Left lower extremity wound and pain. 4. Type 2 diabetes mellitus. 5. Hypertension. 6. Obesity. 7. Hyperlipidemia. DISCHARGE DIAGNOSES: 1. Sepsis with bacteremia, pansensitive Escherichia coli, and cellulitis of left lower extremity. 2. Right lower lobe nodule. 3. Mild chest pain, resolved. 4. Controlled hypertension. 5. Controlled type 2 diabetes mellitus. 6. First degree AV block. CONSULTING PHYSICIANS: Including Dr. Srinivas Lira and Dr. Castro Rivera with Pulmonology. PERTINENT DIAGNOSTICS AND LABS: On admission, white blood cell count was 9.07. B-type natriuretic peptide was 44.2. Sodium 130, BUN 17, creatinine 0.94, and GFR greater than 60. Lactic acid 10.8. Troponin I 0.026. On February 03, the lactic acid was 53. WBC 7.21. Influenza types A and B were both negative. UA was negative for urinary tract infection; however, the blood culture that was collected on February 02 was positive for E coli as was the catheter tip from the PICC line. CT of the chest that was done on February 03 showed a 1.8 cm cavitating nodule in the right lower lobe with adjacent noncavity 7-8 mm nodule. Per radiologist findings, may be infectious or neoplastic. Short-term followup CT scan of the chest in about a month is suggestive to assess for stability or resolution. CT was negative for pulmonary embolus to the level of the segmental branch pulmonary arteries. There are perihilar independent lower lobe predominant ground-glass opacities in reticulation suggestive of interstitial edema. Preliminary report from the echocardiogram was obtained on February 07 showed ejection fraction of 40-45%. Bilateral lower extremity venous Doppler ultrasound was completed on February 03, which was negative for DVT. Today's wbc count 9.92, hemoglobin 12.4, hematocrit 36.6, and platelets 213. Troponin I on February 03 was 0.119 and on February 04 was 0.081. Hemoglobin A1c 10.2%. B-type natriuretic peptide 161.8. February 05 B-type natriuretic peptide 116.7. Most recent chest x-ray was on February 06, which showed no new consolidation. Today, the patient had some mild chest pain on the right side, but overall feels much better. No change in physical exam. Left lower leg cellulitis stops at the mid calf and patient indicates subjectively it is better overall. The patient will be discharged home with his . No DME required. The patient will be discharged on [employer] low sodium diet. Activity level as tolerated. The patient to follow up with his PCP in 1-2 weeks. Follow up for the aforementioned right lower lobe lung biopsy per Bill Atkins NP, with Dr. Lira. The patient will be discharged on Levaquin 500 mg p.o. daily for 7 days and to follow up with Dr. Lira in his office. Dictated by Tanner Whitt NP MD OVIDIO FrostP/BLAYNE /[id number]
== END 2019-02-08 16:21 | disposition home or self-care (01) | DRG 314 ==
LOC: ER 17:30 → ERHOLD 19:51 → MED/SURG2 02-03 18:38
PROVIDERS: ADMIT Internal Medicine; ATTEND Internal Medicine
DX: T80.211A Bloodstream infection due to central venous catheter, initial encounter (principal); A41.51 Sepsis due to Escherichia coli [E. coli]; L03.116 Cellulitis of left lower limb; L97.329 Non-pressure chronic ulcer of left ankle with unspecified severity; E87.2 Acidosis; E11.9 Type 2 diabetes mellitus without complications; I10 Essential (primary) hypertension; Z83.3 Family history of diabetes mellitus; Z82.3 Family history of stroke; Z80.9 Family history of malignant neoplasm, unspecified; E66.9 Obesity, unspecified; Z68.39 Body mass index [BMI] 39.0-39.9, adult; E78.5 Hyperlipidemia, unspecified; R91.1 Solitary pulmonary nodule; I87.2 Venous insufficiency (chronic) (peripheral); I83.023 Varicose veins of left lower extremity with ulcer of ankle; Z80.42 Family history of malignant neoplasm of prostate; Z87.891 Personal history of nicotine dependence; R06.03 Acute respiratory distress; I44.0 Atrioventricular block, first degree
CPT/HCPCS: 36415; 36600; 71045; 71046; 71260; 80048; 80053; 81001; 82550; 82553; 82805; 82948; 83036; 83605; 83690; 83735; 83880; 84439; 84443; 84484; 85025; 85610; 85730; 87040; 87070; 87071; 87086; 87186; 87205; 87400; 93005; 93306; 93970; 94660; 94664; 96372; 99284; 99285; J0696; J1885; J2001; J2060; J2185; J2270; J2930; J3370; J7030; Q9967

== ENCOUNTER → 2019-02-12 | Outpatient (CLI) | payer BC ==
[~2019-02-12] MED LIST changes: +Calcium Carbonate PO; +LEVAQUIN500 MG PO; +LIDOCAINE HCL 2% TOP; +LORATADINE10 MG PO; +MOBIC15 MG PO
== END ==
LOC: WCC 10:42
PROVIDERS: ATTEND Internal Medicine Infectious Disease
DX: E11.8 Type 2 diabetes mellitus with unspecified complications (principal); I87.332 Chronic venous hypertension (idiopathic) with ulcer and inflammation of left lower extremity; L97.329 Non-pressure chronic ulcer of left ankle with unspecified severity; I83.12 Varicose veins of left lower extremity with inflammation; R60.9 Edema, unspecified; I87.2 Venous insufficiency (chronic) (peripheral); E78.41 Elevated Lipoprotein(a)

== ENCOUNTER → 2019-02-26 | Outpatient (CLI) | payer BC ==
[~2019-02-26] MED LIST changes: +COLLAGENASE OINTMENT 30 GM TUBE ONE; +LIDOCAINE/PRILOCAINE 2.5-2.5% KIT ONE
== END ==
LOC: WCC 15:24
PROVIDERS: ATTEND Internal Medicine Infectious Disease
DX: E11.8 Type 2 diabetes mellitus with unspecified complications (principal); I87.332 Chronic venous hypertension (idiopathic) with ulcer and inflammation of left lower extremity; L97.329 Non-pressure chronic ulcer of left ankle with unspecified severity; I83.12 Varicose veins of left lower extremity with inflammation; I87.2 Venous insufficiency (chronic) (peripheral); R60.9 Edema, unspecified; I10 Essential (primary) hypertension; E78.41 Elevated Lipoprotein(a); E66.01 Morbid (severe) obesity due to excess calories

== ENCOUNTER → 2019-03-01 | Outpatient (CLI) | payer BC ==
[~2019-03-01] MED LIST changes: -COLLAGENASE OINTMENT 30 GM TUBE ONE; -LIDOCAINE/PRILOCAINE 2.5-2.5% KIT ONE
--- NOTE | 2019-03-01 14:48 | Diagnostic Imaging Report ---
EXAMINATION: CT scan of the chest without contrast. TECHNIQUE: Spiral CT images of the chest were performed from the lung apices to the level of the adrenal glands. No intravenous contrast was administered per referring physician request. Coronal and sagittal reformatted images were obtained. COMPARISON: CT chest PE protocol 02/03/2019 CLINICAL HISTORY:Follow-up nodule right lower lobe DISCUSSION: ABSENCE OF INTRAVENOUS CONTRAST DECREASES SENSITIVITY FOR DETECTION OF FOCAL LESIONS AND VASCULAR PATHOLOGY. LINES/TUBES: None. LUNGS AND AIRWAYS: Previously described cavitating nodule in the right lower lobe has marginally decreased in size and has altered configuration, now more discoid in appearance, with interval retraction of the adjacent lung parenchyma and new narrow communication with the pleural surface as seen on series 3 image 73. The nodule previously measured 1.7 cm craniocaudal x 2 cm AP x 1.8 cm transverse and now measures 0.9 cm craniocaudal x 1.8 cm AP x 1.7 cm transverse. The smaller, more superior groundglass nodule also within the right lower lobe described on the comparison examination has resolved, and there is a new small thin-walled cavity with adjacent architectural distortion more posteriorly within the right lower lobe seen on series 3 image 71, which was not evident on the comparison study. No new nodules or consolidations. Trachea, mainstem bronchi, and central lobar and segmental bronchi are patent. PLEURA: No pneumothorax or pleural effusions. HEART AND MEDIASTINUM: The thyroid gland is normal. Mild atherosclerotic calcification of the coronary arteries and proximal great vessels. Normal heart size. Right upper extremity PICC has been removed. LYMPH NODES: No axillary, hilar, or mediastinal lymphadenopathy. ABDOMEN: Visualized portions of the liver, spleen, gallbladder, pancreas, and adrenals are unremarkable. BONES AND SOFT TISSUES: No osseous destructive lesions; no focal soft tissue abnormalities. IMPRESSION: Marginal interval decrease in size of right lower lobe pulmonary nodule with morphological changes detailed above, including adjacent lung parenchymal retraction and pleural communication, most compatible with resolving infectious/inflammatory process, particularly in the setting of interval resolution of the previously described smaller satellite nodule. An additional follow-up CT scan of the chest without contrast is suggested in 3 months to document stability or continued involutional changes. Signed by: Dr. Yahir Grace M.D. on 03/01/2019 2:45 PM
== END ==
LOC: CT 13:07
PROVIDERS: ATTEND Internal Medicine Critical Care Medicine
DX: R91.1 Solitary pulmonary nodule (principal)
CPT/HCPCS: 71250

== ENCOUNTER → 2019-03-05 | Outpatient (CLI) | payer BC | LOC: WCC 14:27 | PROVIDERS: ATTEND Internal Medicine Infectious Disease | DX: E11.8 Type 2 diabetes mellitus with unspecified complications (principal); I87.332 Chronic venous hypertension (idiopathic) with ulcer and inflammation of left lower extremity; L97.329 Non-pressure chronic ulcer of left ankle with unspecified severity; I83.12 Varicose veins of left lower extremity with inflammation; I87.2 Venous insufficiency (chronic) (peripheral); R60.9 Edema, unspecified; I10 Essential (primary) hypertension; E66.01 Morbid (severe) obesity due to excess calories; E78.41 Elevated Lipoprotein(a) ==

== ENCOUNTER → 2019-06-11 | Outpatient (CLI) | payer BC ==
--- NOTE | 2019-06-13 00:35 | Diagnostic Imaging Report ---
CT CHEST WITHOUT CONTRAST HISTORY: PULMONARY NODULE COMPARISON: None available. TECHNIQUE: CT scan of the chest WITHOUT intravenous contrast, using standard protocol. The chest was scanned utilizing a multidetector helical scanner from the apex to the level of the adrenal glands. Coronal and sagittal reformats are provided. IV CONTRAST: None, which limits evaluation of the vascular structures, mediastinum and soft tissues. RADIATION DOSE: Total DLP: 654.32 mGy*cm Dose modulation, iterative reconstruction, and/or weight based adjustment of the mA/kV was utilized to reduce the radiation dose to as low as reasonably achievable. COMPLICATIONS: None FINDINGS: Lines/tubes: None. Lungs and Airways: * The right lower lobe cavitating nodule is now almost nearly completely resolved with only subtle residual focal groundglass density (see series 3 image 39). * Interval resolution of the small thin-walled cyst within the right lower lobe. * No pneumonia or pulmonary edema. Pleura: No effusion or pneumothorax. Heart and mediastinum: The thyroid gland is normal. The heart and pericardium are within normal limits. Abdomen: Limited nonenhanced views of the upper abdomen. Lymph nodes: No pathologically enlarged lymph node. Vessels: Scattered atherosclerotic vascular calcifications, including the coronary arteries. Bones: No acute osseous lesion identified. Soft tissues: Otherwise, unremarkable. IMPRESSION: 1. Near complete resolution of the previous right lower lobe cavitary nodule. 2. Interval resolution of the previous small thin-walled cyst within the right lower lobe. 3. No new abnormality Signed by: Dr. Sinan Ghosh D.O., M.M.M. on 06/13/2019 12:32 AM
== END ==
LOC: CT 17:16
PROVIDERS: ATTEND Internal Medicine Critical Care Medicine
DX: R91.1 Solitary pulmonary nodule (principal)
CPT/HCPCS: 71250

== ENCOUNTER 2021-06-29 10:53 | Emergency (ER) | payer BC ==
[~2021-06-29] VITALS: Ht 177.8 cm; Wt 124.7 kg
[2021-06-29] MEDS ORDERED: CASIRIVIMAB/IMDEVIMAB 10 ML in SODIUM CHLORIDE 0.9% 100 ML IV ONE (13:45)
[2021-06-29 15:28] VITALS: BP 121/74
== END 2021-06-29 15:37 | disposition home or self-care (01) ==
LOC: ER 12:02
DX: R05 Cough (principal); U07.1 COVID-19; I10 Essential (primary) hypertension; E11.9 Type 2 diabetes mellitus without complications; E78.5 Hyperlipidemia, unspecified
CPT/HCPCS: 99283; J7050